=== PATIENT | female | born 1970 | race Caucasian/White ===

== ENCOUNTER 2022-07-22 11:13 | Emergency (ER) | payer OTHER, MEDICAID, SELFPAY ==
[2022-07-22 11:18] VITALS: BP 142/89; PULSE 77; RESP 18; TEMP 36.3; O2SAT 98; BMI 48.5
--- NOTE | 2022-07-22 11:32 | CRLHL7_ITS ---
For Patients: As a result of the Cures Act, medical imaging exams and procedure reports are released immediately into your electronic medical record. You may view this report before your referring provider. If you have questions, please contact your health care provider. Indication: Injury Technique: Single view of the pelvis was acquired Comparison: None Findings: Degenerative changes of the visualized lower lumbar spine. Pelvic calcifications likely phleboliths. No visible acute fracture, dislocation or destructive process. Impression: No visible acute posttraumatic finding. Degenerative changes Dictated by Krishna Childers MD @ 07/22/2022 1:13:31 PM (Electronically Signed)
--- NOTE | 2022-07-22 11:32 | CRLHL7_ITS ---
For Patients: As a result of the Cures Act, medical imaging exams and procedure reports are released immediately into your electronic medical record. You may view this report before your referring provider. If you have questions, please contact your health care provider. Indication: Injury Technique: Three views of the lumbosacral spine were acquired Comparison: None Findings: There is no traumatic malalignment. There is no visible acute fracture, dislocation or destructive process. Degenerative changes are noted mainly of the mid and lower lumbar spine. This involves the disc spaces and the facet joints. Impression: Degenerative changes. No visible acute fracture, dislocation or destructive process. Dictated by Krishna Childers MD @ 07/22/2022 1:14:54 PM (Electronically Signed)
--- NOTE | 2022-07-22 11:32 | CRLHL7_ITS ---
For Patients: As a result of the Century Cures Act, medical imaging exams and procedure reports are released immediately into your electronic medical record. You may view this report before your referring provider. If you have questions, please contact your health care provider. Indication: Injury Technique: A total of two views of the right ankle were acquired. Comparison: None Findings: Bones: Ossific fragment at the dorsal aspect the talus distally. This is probably chronic though correlate with point tenderness in this area to entirely exclude an acute avulsion. There is no other finding suggestive of a fracture. Joint spaces: Ankle mortise and syndesmosis are intact. Soft tissues: Dorsal calcaneal spur. Soft tissue swelling Impression: Ossific fragment arising from the dorsal aspect of the talus anteriorly/distally. This is probably chronic. However, correlate with point tenderness in this area to entirely exclude an acute avulsion fracture. No other findings suggesting fracture. Dictated by Krishna Childers MD @ 07/22/2022 1:17:31 PM (Electronically Signed)
--- NOTE | 2022-07-22 11:33 | ED_ITS ---
HPI - General Adult General Time Seen by Provider: 11:33 Date Seen: 07/22/22 Chief complaint: Extremity Pain/Injury, Lower Stated complaint: R ankle injury Time Seen by Provider: 07/22/22 11:15 Source: patient Mode of arrival: wheelchair Limitations: physical limitation History of Present Illness HPI narrative: Patient is a 52-year-old female who presents with a fall in the garage. She feels like her knee got and ankle got pushed back behind her, she has right ankle pain right hip pain and low back pain. The patient has otherwise been pretty healthy her past medical history is reviewed. She is unable take medication prior to coming. She has no head or neck pain no other trauma noted no abdominal pain. Related Data Home Medications Medication Instructions Recorded Confirmed cholestyramine (with sugar) 4 gram 4 ea PO 11/01/21 11/01/21 powder for susp in a packet Allergies Allergy/AdvReac Type Severity Reaction Status Date / Time No Known Allergies Allergy Verified 11/04/21 15:33 Review of Systems 2 Status of ROS: Reports: 6 or more systems reviewed and unremarkable except as noted in History and below PFSH [facility] Medical History Acute right flank pain ?R10.9 - Unspecified abdominal pain (ICD-10) Concussion ?S06.0X9A - Concussion with loss of consciousness of unspecified duration, initial encounter (ICD-10) Gestational diabetes ?O24.419 - Gestational diabetes mellitus in , unspecified control (ICD-10) Greater trochanteric bursitis of both hips ?M70.61 - Trochanteric bursitis, right hip (ICD-10) ?M70.62 - Trochanteric bursitis, left hip (ICD-10) History of endometrial biopsy ?Z92.89 - Personal history of other medical treatment (ICD-10) Long QT interval ?R94.31 - Abnormal electrocardiogram [ECG] [EKG] (ICD-10) Migraine equivalent ?G43.109 - Migraine with aura, not intractable, without status migrainosus (ICD-10) Multiple contusions ?T07.XXXA - Unspecified multiple injuries, initial encounter (ICD-10) Steatosis of liver ?K76.0 - Fatty (change of) liver, not elsewhere classified (ICD-10) Surgical History History of section ?Z98.891 - History of uterine scar from previous surgery (ICD-10) History of colposcopy with cervical biopsy (1992) ?Z98.890 - Other specified postprocedural states (ICD-10) History of dilation and curettage (2000) ?Z98.890 - Other specified postprocedural states (ICD-10) History of laparoscopic cholecystectomy (2014) ?Z90.49 - Acquired absence of other specified parts of digestive tract (ICD- 10) History of lateral meniscus repair of left knee (10/2019) ?Z98.890 - Other specified postprocedural states (ICD-10) History of tonsillectomy (2002) ?Z90.89 - Acquired absence of other organs (ICD-10) Family History Mother Coronary artery disease Family/Other Depression Daughter Fibromyalgia Father Prostate cancer Social History Narrative: 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 Exercises 5 t 6 times per week- water at [employer], has started weights also 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, home health aide, 2 kids Rarely consumes alcohol Smoking Status: Former smoker How often do you have a drink containing alcohol: monthly or less AUDIT-C Alcohol total score: 1 Non-prescribed substance use: denies use Exam Narrative: Exam Narrative: Objective: Patient's vital signs look largely unremarkable She is in no apparent distress, noncyanotic HEENT and neck and back are unremarkable she has no palpable tenderness in her low back Chest abdomen pelvis are unremarkable she has some mild pain in right lateral hip Her right ankle shows some mild swelling and tenderness over and anterior carol ofibular ligament laterally no open wounds noted distal CMS intact Neurologic is nonfocal Const: Vital Signs, click to edit/add: Vital Signs - 24 hr 07/22/22 11:18 Temperature 97.4 F L Pulse Rate [Right Pulse Oximeter] 77 Respiratory Rate 18 Blood Pressure [Ri ght Upper Arm] 142/89 H Pulse Oximetry 98 Oxygen Delivery Me thod Room Air Course Vital Signs Vital signs: Initial Vital Signs Temperature 97.4 F L 07/22/22 11:18 Temperature Source Temporal Artery Scan 07/22/22 11:18 Pulse Rate 77 07/22/22 11:18 Respiratory Rate 18 07/22/22 11:18 Blood Pressure 142/89 H 07/22/22 11:18 Blood Pressure Mean 106 07/22/22 11:18 Blood Pressure Position Sitting 07/22/22 11:18 Pulse Oximetry 98 07/22/22 11:18 Oxygen Delivery Method Room Air 07/22/22 11:18 Vital Signs Temperature 97.4 F L 07/22/22 11:18 Pulse Rate 77 07/22/22 11:18 Respiratory Rate 18 07/22/22 11:18 Blood Pressure 142/89 H 07/22/22 11:18 Pulse Oximetry 98 07/22/22 11:18 Oxygen Delivery Method Room Air 07/22/22 11:18 Temperature 97.4 F L 07/22/22 11:18 Pulse Rate 77 07/22/22 11:18 Respiratory Rate 18 07/22/22 11:18 Blood Pressure 142/89 H 07/22/22 11:18 Pulse Oximetry 98 07/22/22 11:18 Oxygen Delivery Method Room Air 07/22/22 11:18 Medical Decision Making MDM Narrative Medical decision making narrative: Patient is a 52-year-old female who fell and has right ankle hip and low back pain she fell on her. She fell in her garage she is nonambulatory based on her ankle. She has no head or neck or back pain at present although she does have some right hip pain. Will x-ray her right ankle right hip pelvis and low back. Denies . Addendum: Patient's pelvic x-ray, lumbar spine x-ray, and ankle x-ray show no obvious fracture. Will get her crutches, ibuprofen, ice, gel splint for her ankle. Follow up with primary care in 2-3 days. Light activity, return to ED sooner problems or concerns. I will call her with results of radiology over- read of her x-rays if needed. Addendum: I went back to talk to the patient and she now has developed some right knee pain it appears to have a stable knee, no effusion, but I think an x- ray be appropriate, will put her knee immobilizer as well. She will use crutches, have an ankle brace as well as a knee immobilizer. Will need follow- up with primary care as mention. Patient a knee x-ray that by my review looks unremarkable. I think follow-up with the orthopedic PA would be very appropriate in the clinic. She agrees to this. No written for off work until visited in the next 3-5 days. Discharge Plan Discharge Clinical Impression: Acute ankle pain, Lumbar back pain, Acute knee pain Patient Disposition: Home w/ Parent or Adult Condition: Stable Additional Instructions: Crutches, brace for the ankle, Advil as needed, and follow up with ortho in the next 2-3 days, further workup in ER as needed. Patient was comfortable plan. wear knee immobilizer. Follow up appointment is scheduled at the [facility] on 07/28 with a 10:30am appointment time. If you have any questions or need to reschedule, please call [phone]. [facility] [address] [place] [address] Activity Level: Light activity Discharge Diet: Regular Prescriptions: No Action cholestyramine (with sugar) 4 gram powder in packet 4 ea PO Follow Up/Referrals: Ruth Diaz MD [Primary Care Provider] - Stand Alone Forms: Qu[employer]th Info Instructions
[2022-07-22] MEDS: IBUPROFEN 400 MG TABLET 800 MG PO (12:32)
--- NOTE | 2022-07-22 12:48 | CRLHL7_ITS ---
For Patients: As a result of the Cures Act, medical imaging exams and procedure reports are released immediately into your electronic medical record. You may view this report before your referring provider. If you have questions, please contact your health care provider. Indication: Knee pain Technique: Right knee 3 views Comparison: 08/19/2021 Findings: Medial compartment spurring. Trace spurring at the lateral compartment. Patellofemoral spurring. Large joint effusion. No fracture. Vascular calcifications. Impression: Tricompartmental degenerative joint disease with interval development of a joint effusion. Dictated by Devang Recinos MD @ 07/23/2022 10:57:58 AM (Electronically Signed)
== END 2022-07-22 14:25 | disposition home or self-care (01) ==
PROVIDERS: Emergency Provider Family Medicine; PCP Family Medicine
DX: M25.571 Pain in right ankle and joints of right foot (principal); M54.50 Low back pain, unspecified; M25.561 Pain in right knee; W01.0XXA Fall on same level from slipping, tripping and stumbling without subsequent striking against object, initial encounter
CPT/HCPCS: 72100; 72170; 73562; 73600; 99284; A9270

== ENCOUNTER 2022-10-30 08:21 | Outpatient (CLI) | payer OTHER, MEDICAID, SELFPAY | END 2022-10-30 08:22 | disposition home or self-care (01) | PROVIDERS: PCP Family Medicine; Visit Provider Physician Assistant | DX: R53.83 Other fatigue (principal); R10.2 Pelvic and perineal pain; R32 Unspecified urinary incontinence; Z13.6 Encounter for screening for cardiovascular disorders; Z13.1 Encounter for screening for diabetes mellitus | CPT/HCPCS: 80061; 82306; 82947; 83001; 84443; 87086 ==

== ENCOUNTER 2022-11-06 14:44 | Outpatient (CLI) | payer OTHER, MEDICAID, SELFPAY ==
--- NOTE | 2022-11-06 15:00 | CRLHL7_ITS ---
For Patients: As a result of the Cures Act, medical imaging exams and procedure reports are released immediately into your electronic medical record. You may view this report before your referring provider. If you have questions, please contact your health care provider. INDICATION: Pelvic and perineal pain. History of section. TECHNIQUE: Transabdominal and transvaginal pelvic ultrasound. COMPARISON : November 15, 2020. FINDINGS: The uterus measures 9.9 x 3.1 x 5.2 cm. The endometrial stripe measures 3 mm transvaginally. section scar lower uterine segment. There appears to be a cystic lesion arising either within or just adjacent to the section scar measuring 1.9 x 1.6 x 1.8 cm. This was mentioned on the prior pelvic ultrasound November 15, 2020 (in fact 2 cysts were mentioned on that prior study but only 1 is convincingly seen today). Nonvisualization of the ovaries. No free pelvic fluid. IMPRESSION: 1. Normal size uterus. 2. Normal endometrial stripe thickness of 3 mm. 3. Cystic lesion arising from or adjacent to the section scar. Dictated by Ronnie Lutz MD @ 11/07/2022 10:05:41 AM (Electronically Signed)
== END 2022-11-06 14:45 | disposition home or self-care (01) ==
PROVIDERS: PCP Family Medicine; Visit Provider Physician Assistant
DX: R10.2 Pelvic and perineal pain (principal); R93.89 Abnormal findings on diagnostic imaging of other specified body structures
CPT/HCPCS: 76830; 76856

== ENCOUNTER 2023-01-22 13:41 | Outpatient (CLI) | payer MEDICAID, SELFPAY ==
--- NOTE | 2023-01-22 14:00 | CRLHL7_ITS ---
For Patients: As a result of the Century Cures Act, medical imaging exams and procedure reports are released immediately into your electronic medical record. You may view this report before your referring provider. If you have questions, please contact your health care provider. BILATERAL SCREENING MAMMOGRAM WITH COMPUTER-AIDED DETECTION AND TOMOSYNTHESIS TECHNIQUE: CC and MLO views were obtained. These mammographic images have been obtained using full-field digital technique. These mammographic images were interpreted with the benefit of computer-aided detection. Breast Tomosynthesis was used in this interpretation. COMPARISON FILM: 05/22/20, 06/22/18. FINDINGS: There are scattered areas of fibroglandular density IMPRESSION: There is no radiographic evidence for malignancy. ASSESSMENT: BI-RADS Category 2: Benign RECOMMENDATION: Routine screening mammogram in 1 year. A lay language report of this examination will be provided to the patient. Devang Recinos M.D. Diagnostic Radiologist [email or web address] [place]/Dictated by: Devang Recinos MD @ 01/23/2023 11:53:00 AM (Electronically Signed)
== END 2023-01-22 13:42 | disposition home or self-care (01) ==
LOC: MAMMO 13:42
PROVIDERS: Visit Provider Physician Assistant
DX: Z12.31 Encounter for screening mammogram for malignant neoplasm of breast (principal)
CPT/HCPCS: 77063; 77067

== ENCOUNTER 2023-09-03 08:54 | Outpatient (CLI) | payer MEDICAID, SELFPAY | END 2023-09-03 08:55 | disposition home or self-care (01) | PROVIDERS: PCP Physician Assistant; Visit Provider Physician Assistant | DX: E55.9 Vitamin D deficiency, unspecified (principal); R03.0 Elevated blood-pressure reading, without diagnosis of hypertension; Z13.220 Encounter for screening for lipoid disorders; Z13.29 Encounter for screening for other suspected endocrine disorder | CPT/HCPCS: 80053; 80061; 82306; 84443 ==

== ENCOUNTER 2023-09-17 08:09 | Outpatient (CLI) | payer MEDICAID, SELFPAY | END 2023-09-17 08:10 | disposition home or self-care (01) | LOC: NFLDREF 10-06 15:01 | PROVIDERS: Visit Provider Physician Assistant | DX: M79.604 Pain in right leg (principal); M79.605 Pain in left leg | CPT/HCPCS: 80053 ==

== ENCOUNTER 2024-01-13 17:42 | Emergency (ER) | payer OTHER, SELFPAY ==
[2024-01-13 17:46] VITALS: BP 150/73; PULSE 74; RESP 16; TEMP 36.3; O2SAT 99; BMI 49.4
[2024-01-13 18:02] LABS: Appearance Urine Clear (Clear); Bilirubin Urine Negative (Negative); Blood Urine Negative (Negative); Color Urine Yellow (Yellow); Glucose Urine Negative (Negative); Ketones Urine Negative (Negative); Leukocyte Esterase Urine Negative (Negative); Nitrite Urine Negative (Negative); Protein Urine Negative (Negative); Specific Gravity Urine 1.015 (1.000-1.030); Urobilinogen Urine 0.2 (0.2-1.0); pH Urine 5.5 (5.0-8.5)
[2024-01-13 18:17] LABS: RBC Urine 0-2 (0-2); Squamous Epithelial Cell Urine Moderate (None-Few)
--- NOTE | 2024-01-13 18:33 | ED_ITS ---
HPI - General Adult General Date Seen: 01/13/24 Chief complaint: Flank Pain Stated complaint: Lower right back pain Time Seen by Provider: 01/13/24 18:24 Source: patient Mode of arrival: ambulatory Limitations: no limitations History of Present Illness HPI narrative: Patient is a 53-year-old woman, generally healthy, who says she has right flank pain which started abruptly yesterday when she was getting ready to leave for work. She says she just turned and had sharp stabbing pain develop in the right flank. Since then, it seems to radiate to between the scapula and as well it radiates to her right lower quadrant. She has had a little bit of nausea today. She has had some chills but no documented fever, no urinary symptoms, no history of similar symptoms. She is status post cholecystectomy. Thinks she may have had a kidney stone once remotely. Pain is a little bit worse when she moves but she still has pain at rest. Related Data Home Medications ?Medication ?Instructions ?Recorded ?Confirmed cholestyramine (with sugar) 4 gram 4 ea PO 11/01/21 09/03/23 powder for susp in a packet ascorbic acid (vitamin C) 500 mg/5 50 mg PO QDAY 07/20/23 09/03/23 mL oral syrup cholecalciferol (vitamin D3) 10 10 mcg PO QDAY 07/20/23 09/03/23 mcg (400 unit) capsule omega-3 fatty acids 1,000 mg 1,000 mg PO QDAY 07/20/23 09/03/23 capsule vitamin K2 45 mcg capsule 45 mcg PO QDAY 07/20/23 09/03/23 Previous Rx's ?Medication ?Instructions ?Recorded fluconazole 150 mg tablet 150 mg PO Q3D 2 doses #2 tabs 07/20/23 Allergies Allergy/AdvReac Type Severity Reaction Status Date / Time No Known Allergies Allergy Verified 09/03/23 08:41 Review of Systems Status of ROS: Reports: 10 or more systems reviewed and unremarkable except as noted in History and below [facility] Medical History Greater trochanteric bursitis of both hips ?M70.61 - Trochanteric bursitis, right hip (ICD-10) ?M70.62 - Trochanteric bursitis, left hip (ICD-10) Long QT interval ?R94.31 - Abnormal electrocardiogram [ECG] [EKG] (ICD-10) Steatosis of liver ?K76.0 - Fatty (change of) liver, not elsewhere classified (ICD-10) Multiple contusions ?T07.XXXA - Unspecified multiple injuries, initial encounter (ICD-10) Migraine equivalent ?G43.109 - Migraine with aura, not intractable, without status migrainosus (ICD-10) History of endometrial biopsy ?Z92.89 - Personal history of other medical treatment (ICD-10) Gestational diabetes ?O24.419 - Gestational diabetes mellitus in , unspecified control (ICD-10) Concussion ?S06.0X9A - Concussion with loss of consciousness of unspecified duration, initial encounter (ICD-10) Acute right flank pain ?R10.9 - Unspecified abdominal pain (ICD-10) Surgical History History of tonsillectomy (2002) ?Z90.89 - Acquired absence of other organs (ICD-10) History of lateral meniscus repair of left knee (10/2019) ?Z98.890 - Other specified postprocedural states (ICD-10) History of laparoscopic cholecystectomy (2014) ?Z90.49 - Acquired absence of other specified parts of digestive tract (ICD- 10) History of dilation and curettage (2000) ?Z98.890 - Other specified postprocedural states (ICD-10) History of colposcopy with cervical biopsy (1992) ?Z98.890 - Other specified postprocedural states (ICD-10) History of section ?Z98.891 - History of uterine scar from previous surgery (ICD-10) Family History Mother Coronary artery disease Breast cancer Uterine cancer Family/Other Depression Daughter Fibromyalgia Father Prostate cancer 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 Exercises 5 t 6 times per week- water at [employer], has started weights also 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, home health aide, 2 kids Rarely consumes alcohol What is your current living situation?: I presently have a place to live Problems where you live: no known problems In the past 12 months, utilities in danger of being shut off: no In past 12 months, lack of transportation kept you from medical appts, meetings, work, or getting things needed for daily living: no In the past 12 mos, have been you worried that your food would run out before you had money to buy more?: never true In the past 12 mos, the food you bought just didn't last and you didn't have money to buy more?: never true Smoking Status: Former smoker Do you use any of these nicotine containing products: None How often do you have a drink containing alcohol: 2-4 times a month AUDIT-C Alcohol total score: 2 Non-prescribed substance use: denies use How often does anyone, including family, friends and others, physically hurt you : never How often does anyone, including family, friends and others, insult or talk down to you: never How often does anyone, including family, friends and others, threaten you with harm: never How often does anyone, including family, friends and others, scream or curse at you: never Little interest or pleasure in doing things: several days Feeling down, depressed, or hopeless: more than half the days Exam Narrative: Exam Narrative: Vital signs as noted above. In general, an alert, well-appearing patient. Head: Normocephalic, atraumatic. Eyes: Pupils are equal reactive. Extraocular movements are full. Conjunctivae are normal. ENT: Mucous membranes are moist. Throat is normal. Neck: Supple without lymphadenopathy. Heart: Regular rate and rhythm. No murmur or rub. Lungs: Clear bilaterally. No increased work of breathing, crackles or wheezes. Abdomen: Soft and nontender. No CVA tenderness. Back: She has a little bit of minimal tenderness in the right flank to palpation. Extremities: Well perfused. No edema. No calf tenderness. Pulses intact. Neurologic: Patient is alert and oriented to person and place. Speech is fluent. Face is symmetric. Moves all extremities equally. Affect: Normal. Skin: Warm and dry. Well perfused. Const: Vital Signs, click to edit/add: Vital Signs - 24 hr 01/13/24 17:46 01/13/24 19:18 Temperature 97.4 F L 97.9 F Pulse Rate [Pulse Oximeter] 74 78 Respiratory Rate 16 16 Blood Pressure [Ri ght Upper Arm] 150/73 H 148/91 H Pulse Oximetry 99 99 Oxygen Delivery Me thod Room Air Room Air Documenting provider has reviewed patient's vital signs: yes Course Course ED Course: She has been taking ibuprofen and Tylenol at home, declines pain medication here. She had a UA obtained, this really is negative, 0-2 red cells 2-5 white cells moderate squames. None the less, I think it is reasonable to rule out a larger kidney stone which might create a false negative in terms of hematuria. Other diagnostic considerations would include musculoskeletal pain, radiculopathy, shingles. By my review, CT scan of the abdomen did not show any evidence of kidney stone hydronephrosis, pyelonephritis or other findings to explain her flank pain. Final radiology read as follows:Patient: UMA GRAJEDA Facility: [facility] RIS Site . Site : 1970 Study: CT-Abdomen/Pelvis W/O-01/13/2024 6:46:28 PM Ordering Physician: Cuba Mak Final Report: INDICATION: Right flank pain. TECHNIQUE: Multiplanar CT examination of the abdomen and pelvis was performed without the use of intravenous contrast. COMPARISON: CT abdomen pelvis 02/01/2020. FINDINGS: Lower chest: No focal consolidation. Normal heart size. No pleural effusions or pneumothorax. Small hiatal hernia. Liver: Unremarkable. Gallbladder: Cholecystectomy. Biliary: Unremarkable. Pancreas: Within normal limits. Spleen: Unremarkable. Adrenal glands: Unremarkable. Renal/ureters/bladder: Normal in size. No obstructive uropathy. No hydronephrosis or obstructive urinary calculi. The ureters appear unremarkable. The bladder is within normal limits. Limited evaluation for renal masses without the use of intravenous contrast. Pelvis: Unremarkable uterus. No adnexal masses. Gastrointestinal: No bowel wall thickening or bowel obstruction. Normal appendix. No significant colonic diverticulosis. Mild colonic stool burden. Vasculature: No aortic aneurysm. No significant atherosclerotic calcifications. Lymph nodes: No pathologic lymphadenopathy by size criteria. Peritoneum: No free fluid or pneumoperitoneum. No drainable fluid collections. Abdominal wall/soft tissues: Unremarkable. Bones: No acute osseous abnormalities. IMPRESSION: 1. No hydronephrosis or obstructive urolithiasis. 2. No acute abdominopelvic pathology. The etiology of the patient`s flank pain is not elucidated on this examination. Please note that all CT scans at this facility use dose modulation, iterative reconstruction, and/or weight-based dosing when appropriate to reduce radiation dose to as low as reasonably achievable. Dictated by Rad Holloway MD @ 01/13/2024 8:16:47 PM At this time, would recommend supportive measures, continue with ibuprofen and/or Tylenol, we talked about trying other modalities such as prednisone for possible radiculopathy or a muscle relaxer, she says she really just does not like taking medicines and would rather stick with Motrin and Tylenol. I think that is certainly reasonable. We talked about persistence of symptoms beyond 7- 10 days that she should see her primary doctor for recheck. If at any time she has worsening severe pain, if she has new symptoms such as fevers, vomiting, significant abdominal pain return to the ER at any time. Vital Signs Vital signs: Initial Vital Signs Temperature 97.4 F L 01/13/24 17:46 Temperature Source Temporal Artery Scan 01/13/24 17:46 Pulse Rate 74 01/13/24 17:46 Respiratory Rate 16 01/13/24 17:46 Blood Pressure 150/73 H 01/13/24 17:46 Blood Pressure Mean 98 01/13/24 17:46 Blood Pressure Position Sitting 01/13/24 17:46 Pulse Oximetry 99 01/13/24 17:46 Oxygen Delivery Method Room Air 01/13/24 17:46 Vital Signs Temperature 97.4 F L 01/13/24 17:46 Pulse Rate 74 01/13/24 17:46 Respiratory Rate 16 01/13/24 17:46 Blood Pressure 150/73 H 01/13/24 17:46 Pulse Oximetry 99 01/13/24 17:46 Oxygen Delivery Method Room Air 01/13/24 17:46 Temperature 97.9 F 01/13/24 19:18 Pulse Rate 78 01/13/24 19:18 Respiratory Rate 16 01/13/24 19:18 Blood Pressure 148/91 H 01/13/24 19:18 Pulse Oximetry 99 01/13/24 19:18 Oxygen Delivery Method Room Air 01/13/24 19:18 Medical Decision Making Lab Data Labs: Lab Results 09/25/24 Range/Units 17:51 Urine Color Yellow (Yellow) Urine Appearance Clear (Clear) Urine pH 5.5 (5.0-8.5) Ur Specific [place] 1.015 (1.000-1.030) Urine Protein Negative (Negative) Urine Glucose (UA) Negative (Negative) Urine Ketones Negative (Negative) Urine Blood Negative (Negative) Urine Nitrite Negative (Negative) Urine Bilirubin Negative (Negative) Urine Urobilinogen 0.2 (0.2-1.0) Ur Leukocyte Esterase Negative (Negative) Urine RBC 0-2 (0-2) Urine WBC 2-5 (0-5) Ur Squamous Epith Cells Moderate A (None-Few) Urine Bacteria None (None) Discharge Plan Discharge Clinical Impression: Acute right-sided back pain Patient Disposition: Home, Self-Care Condition: Stable Instructions: Acute Low Back Pain (ED) Additional Instructions: Continue with ibuprofen and/or Tylenol as needed. Ice or heat may be helpful as well. For more severe pain, new symptoms such as fevers, nausea vomiting or significant abdominal pain, return any time to the ER for re-evaluation. Otherwise, if not gradually improving over the next 7-10 days, see her primary doctor. If you develop a rash you should be seen again. Prescriptions: No Action cholestyramine (with sugar) 4 gram powder in packet 4 ea PO vitamin K2 45 mcg capsule 45 mcg PO QDAY omega-3 fatty acids 1,000 mg capsule 1,000 mg PO QDAY ascorbic acid (vitamin C) 500 mg/5 mL syrup 50 mg PO QDAY cholecalciferol (vitamin D3) 10 mcg (400 unit) capsule 10 mcg PO QDAY fluconazole 150 mg tablet 150 mg PO Q3D Qty: 2 0RF Rx Instructions: may repeat second dose 72 hrs after first dose if symptoms persist Follow Up/Referrals: Provider,Not a Local [Primary Care Provider] - Stand Alone Forms: [employer] Info Instructions
[2024-01-13 19:18] VITALS: BP 148/91; PULSE 78; RESP 16; TEMP 36.6; O2SAT 99
== END 2024-01-13 20:35 | disposition home or self-care (01) ==
PROVIDERS: Emergency Provider Emergency Medicine
DX: M54.9 Dorsalgia, unspecified (principal)
CPT/HCPCS: 74176; 81001; 99284

== ENCOUNTER 2024-03-30 16:38 | Emergency (ER) | payer MEDICAID, SELFPAY ==
[2024-03-30 16:43] VITALS: BP 134/84; PULSE 78; RESP 18; TEMP 36.7; O2SAT 98; BMI 36.6
--- NOTE | 2024-03-30 17:16 | ED_ITS ---
HPI - General Adult General Chief complaint: Chest Pain Stated complaint: Blurred vison L eye, chest pain, imbalance, nausea Time Seen by Provider: 03/30/24 16:41 History of Present Illness HPI narrative: This 53-year-old female comes in reporting vertigo symptoms that came on rather suddenly prior to arrival. She had nausea and some vomiting related to this. She states that she can minimize the symptoms to where they are almost gone if she remains still. Symptoms are worse with any kind of movement. Prior to this she was feeling well and had no complaints. She does report some tingling sensation in her face and some heart palpitations that was related to the nausea and vomiting but now has resolved. Related Data Home Medications ?Medication ?Instructions ?Recorded ?Confirmed cholestyramine (with sugar) 4 gram 4 ea PO 11/01/21 09/03/23 powder for susp in a packet omega-3 fatty acids 1,000 mg 1,000 mg PO QDAY 07/20/23 09/03/23 capsule vitamin K2 45 mcg capsule 45 mcg PO QDAY 07/20/23 09/03/23 famotidine 20 mg tablet 20 mg PO BID 03/30/24 03/30/24 Previous Rx's ?Medication ?Instructions ?Recorded fluconazole 150 mg tablet 150 mg PO Q3D 2 doses #2 tabs 07/20/23 Allergies Allergy/AdvReac Type Severity Reaction Status Date / Time No Known Allergies Allergy Verified 03/30/24 16:51 Review of Systems Status of ROS: Reports: 10 or more systems reviewed and unremarkable except as noted in History and below Narrative: Constitutional: No fevers, no weight gain or loss. Eyes: No discharge. No vision changes. HENT: No congestion, no sore throat, no ear pain. Cardiovascular: No chest pain, no palpitations. Respiratory: No shortness of breath, no wheezes, no cough. Gastrointestinal: No abdominal pain, no diarrhea. Nausea and 1 vomiting episode related to vertigo symptoms. Genitourinary: No dysuria, no hematuria. Musculoskeletal: Normal range of motion. Skin: No rashes, no pruritis. Neurological: No weakness, sensory change, speech change. Vertigo symptoms as described above. Endo/Heme/Allergies: No bruising or bleeding. No polydipsia. Pysch: no suicidality, no anxiety, no insomnia. All other systems reviewed and are negative. PFSH PFS Medical History Greater trochanteric bursitis of both hips ?M70.61 - Trochanteric bursitis, right hip (ICD-10) ?M70.62 - Trochanteric bursitis, left hip (ICD-10) Long QT interval ?R94.31 - Abnormal electrocardiogram [ECG] [EKG] (ICD-10) Steatosis of liver ?K76.0 - Fatty (change of) liver, not elsewhere classified (ICD-10) Multiple contusions ?T07.XXXA - Unspecified multiple injuries, initial encounter (ICD-10) Migraine equivalent ?G43.109 - Migraine with aura, not intractable, without status migrainosus (ICD-10) History of endometrial biopsy ?Z92.89 - Personal history of other medical treatment (ICD-10) Gestational diabetes ?O24.419 - Gestational diabetes mellitus in , unspecified control (ICD-10) Concussion ?S06.0X9A - Concussion with loss of consciousness of unspecified duration, initial encounter (ICD-10) Acute right flank pain ?R10.9 - Unspecified abdominal pain (ICD-10) Surgical History History of tonsillectomy (2002) ?Z90.89 - Acquired absence of other organs (ICD-10) History of lateral meniscus repair of left knee (10/2019) ?Z98.890 - Other specified postprocedural states (ICD-10) History of laparoscopic cholecystectomy (2014) ?Z90.49 - Acquired absence of other specified parts of digestive tract (ICD- 10) History of dilation and curettage (2000) ?Z98.890 - Other specified postprocedural states (ICD-10) History of colposcopy with cervical biopsy (1992) ?Z98.890 - Other specified postprocedural states (ICD-10) History of section ?Z98.891 - History of uterine scar from previous surgery (ICD-10) Family History Mother Coronary artery disease Breast cancer Uterine cancer Family/Other Depression Daughter Fibromyalgia Father Prostate cancer 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 Exercises 5 t 6 times per week- water at [employer], has started weights also 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, home health aide, 2 kids Rarely consumes alcohol What is your current living situation?: I presently have a place to live Problems where you live: no known problems In the past 12 months, utilities in danger of being shut off: no In the past 12 mos, have been you worried that your food would run out before you had money to buy more?: never true In the past 12 mos, the food you bought just didn't last and you didn't have money to buy more?: never true Smoking Status: Former smoker Do you use any of these nicotine containing products: None How often do you have a drink containing alcohol: 2-4 times a month AUDIT-C Alcohol total score: 2 Non-prescribed substance use: denies use How often does anyone, including family, friends and others, physically hurt you : never How often does anyone, including family, friends and others, insult or talk down to you: never How often does anyone, including family, friends and others, threaten you with harm: never How often does anyone, including family, friends and others, scream or curse at you: never service: No Exam Narrative: Exam Narrative: Constitutional: Well-developed, well-nourished, no acute distress. HEENT: Normocephalic, atraumatic. Neck: Normal range of motion. Nontender. Supple. Heart: Regular. No murmurs. Normal rate. Intact distal pulses. Lungs: Clear to auscultation. No chest discomfort. No wheezes, rhonchi, or rales. Abdomen: Normal bowel sounds. Nontender. No rebound tenderness. Genitalia: Deferred. Back: No midline tenderness. Normal range of motion. Extremities: Normal range of motion. No injury. Skin: Intact. No rash. Warm. No erythema or pallor. Neurologic: No altered sensation. No weakness. Alert and oriented. No facial asymmetry. Tongue is midline. [id number] is normal. No pronator drift. Investment Officer strength is equal bilaterally. Able to raise each leg from the bed. Psychiatric: No suicidality. No anxiety or depression. No insomnia. Nursing notes and vitals signs are reviewed. Const: Vital Signs, click to edit/add: Vital Signs - 24 hr 03/30/24 16:43 03/30/24 18:01 Temperature 98.0 F Pulse Rate [Right Pulse Oximeter] 78 88 Respiratory Rate 18 Blood Pressure [Ri ght Upper Arm] 134/84 121/69 Pulse Oximetry 98 Oxygen Delivery Me thod Room Air Course Vital Signs Vital signs: Initial Vital Signs Temperature 98.0 F 03/30/24 16:43 Temperature Source Temporal Artery Scan 03/30/24 16:43 Pulse Rate 78 03/30/24 16:43 Pulse Rhythm Regular 03/30/24 16:43 Pulse Strength 3+ Normal 03/30/24 16:43 Respiratory Rate 18 03/30/24 16:43 Blood Pressure 134/84 03/30/24 16:43 Blood Pressure Mean 100 03/30/24 16:43 Blood Pressure Position Sitting 03/30/24 16:43 Pulse Oximetry 98 03/30/24 16:43 Oxygen Delivery Method Room Air 03/30/24 16:43 Vital Signs Temperature 98.0 F 03/30/24 16:43 Pulse Rate 78 03/30/24 16:43 Respiratory Rate 18 03/30/24 16:43 Blood Pressure 134/84 03/30/24 16:43 Pulse Oximetry 98 03/30/24 16:43 Oxygen Delivery Method Room Air 03/30/24 16:43 Temperature 98.0 F 03/30/24 16:43 Pulse Rate 88 03/30/24 18:01 Respiratory Rate 18 03/30/24 16:43 Blood Pressure 121/69 03/30/24 18:01 Pulse Oximetry 98 03/30/24 16:43 Oxygen Delivery Method Room Air 03/30/24 16:43 Medications Administered Medications: Discontinued Medications Generic Name Dose Route Start Last Admin Trade Name Freq PRN Reason Stop Dose Admin Meclizine HCl 25 mg 03/30/24 17:15 03/30/24 17:21 Meclizine Hcl 25 Mg Tablet PO 03/30/24 17:16 25 mg ONCE ONE Administration Ondansetron HCl 4 mg 03/30/24 17:15 03/30/24 17:21 Ondansetron Odt 4 Mg Tab PO 03/30/24 17:16 4 mg ONCE ONE Administration Medical Decision Making [facility] Narrative Medical decision making narrative: This 53-year-old comes in reporting vertigo symptoms that came on rather suddenly. She did have some associated nausea and a vomiting episode. Her exam here is completely normal. She does not have nystagmus. Her neurologic exam is also completely normal. Her symptoms are much more likely to be a peripheral cause for her vertigo. She is not showing any signs or symptoms of a central process such as a stroke. I did discuss lab and imaging options and the patient did prefer to have labs checked. Her EKG and labs returned with normal results. Her troponin returns at 0. The patient did receive oral doses of Zofran and meclizine and she states that she is feeling better. She is okay to be discharged home. I did provide prescriptions for these 2 medicines. Lab Data Labs: Lab Results 03/30/24 Range/Units 17:25 WBC 6.96 (4.50-11.00) K/uL RBC 4.86 (4.00-5.20) m/uL Hgb 13.2 (12.0-16.0) gm/dL Hct 41.3 (33.0-51.0) % MCV 85 (80-100) fL MCH 27 (26-34) pg MCHC 32 (32-36) gm/dL RDW Coeff of Jeannette 12.8 (11.5-15.5) % Plt Count 199 (140-440) K/uL Neut % (Auto) 53.2 (42.0-72.0) % Lymph % (Auto) 35.6 (20-44) % [place] % (Auto) 7.6 (0.0-11.0) % Eos % (Auto) 3.2 (0.0-7.0) % Baso % (Auto) 0.3 (0.0-3.0) % Neut # (Auto) 3.70 (1.7-7.0) K/uL Lymph # (Auto) 2.48 (0.90-2.90) K/uL [place] # (Auto) 0.50 (0.00-0.90) K/UL Eos # (Auto) 0.22 (0.00-0.50) K/uL Baso # (Auto) 0.02 (0.00-0.30) K/uL Abs Immat Gran (auto) 0.01 (0.00-0.30) K/uL Imm/Tot Granulo (auto) 0.1 % Sodium 137 (135-149) mmol/L Potassium 4.0 (3.6-5.1) mmol/L Chloride 101 (96-114) mmol/L Carbon Dioxide 26 (20-32) mmol/L Anion Gap 10 (7-15) mEq/L BUN 18 (7-30) mg/dL Creatinine 0.6 (0.5-1.5) mg/dL Estimated Creat Clear 84.78 Estimated GFR 107 ml/min Glucose 117 H (60-115) mg/dL Calcium 8.7 (8.4-10.6) mg/dL POC Troponin I 0.00 L (0.01-0.04) ng/ml ECG Data Attestation: I personally reviewed and interpreted this ECG as follows: Interpretation: Normal sinus rhythm. Rate is 81 beats per minute. There are no ST or T-wave abnormalities. Discharge Plan Discharge Clinical Impression: Acute vestibular neuritis Patient Disposition: Home w/ Parent or Adult Condition: Improved Additional Instructions: Take medication as needed and indicated. Increase activity as tolerated. Follow up with MD return if worsening. Prescriptions: No Action cholestyramine (with sugar) 4 gram powder in packet 4 ea PO vitamin K2 45 mcg capsule 45 mcg PO QDAY omega-3 fatty acids 1,000 mg capsule 1,000 mg PO QDAY fluconazole 150 mg tablet 150 mg PO Q3D Qty: 2 0RF Rx Instructions: may repeat second dose 72 hrs after first dose if symptoms persist famotidine 20 mg tablet 20 mg PO BID Follow Up/Referrals: Provider,Not a Local [Non-Staff] - Stand Alone Forms: [employer] Info Instructions
[2024-03-30] MEDS: ONDANSETRON ODT 4 MG TAB PO (17:21)
[2024-03-30] MEDS: MECLIZINE HCL 25 MG TABLET PO (17:21)
[2024-03-30 17:37] LABS: Basophils Absolute Auto 0.02 K/uL (0.00-0.30); Basophils Percent Auto 0.3 % (0.0-3.0); Eosinophils Absolute Auto 0.22 K/uL (0.00-0.50); Eosinophils Percent Auto 3.2 % (0.0-7.0); Hematocrit 41.3 % (33.0-51.0); Hemoglobin* 13.2 gm/dL (12.0-16.0); Immature Granulocytes Abs Auto 0.01 K/uL (0.00-0.30); Immature Granulocytes Pct Auto 0.1 %; Lymphocytes Absolute Auto 2.48 K/uL (0.90-2.90); Lymphocytes Percent Auto 35.6 % (20-44); Mean Corpuscular HGB Conc 32 gm/dL (32-36); Mean Corpuscular Hemoglobin 27 pg (26-34); Mean Corpuscular Volume 85 fL (80-100); Monocytes Percent Auto 7.6 % (0.0-11.0); Neutrophils Percent Auto 53.2 % (42.0-72.0); Platelet Count* 199 K/uL (140-440); RDW Coefficient of Variation % 12.8 % (11.5-15.5); Red Blood Count 4.86 m/uL (4.00-5.20); White Blood Count* 6.96 K/uL (4.50-11.00)
[2024-03-30 17:44] LABS: Slide Review Reflex No
[2024-03-30 17:47] LABS: Chloride* 101 mmol/L (96-114); Sodium* 137 mmol/L (135-149)
[2024-03-30 17:50] LABS: Blood Urea Nitrogen* 18 mg/dL (7-30); Creatinine* 0.6 mg/dL (0.5-1.5); Est. Creatinine Clearance* 84.78; Estimated Glomerular Filt Rate 107 ml/min
[2024-03-30 17:51] LABS: Anion Gap 10 mEq/L (7-15); Calcium* 8.7 mg/dL (8.4-10.6); Carbon Dioxide* 26 mmol/L (20-32); Glucose* 117 mg/dL (60-115)
[2024-03-30 18:01] VITALS: BP 121/69; PULSE 88
== END 2024-03-30 18:16 | disposition home or self-care (01) ==
PROVIDERS: Emergency Provider Emergency Medicine Emergency Medical Services; PCP Family Medicine
DX: H81.22 Vestibular neuronitis, left ear (principal)
CPT/HCPCS: 36415; 80048; 84484; 85025; 93005; 99284; A9270

== ENCOUNTER 2024-05-12 12:17 | Outpatient (CLI) | payer MEDICAID, OTHER, SELFPAY | END 2024-05-12 12:18 | disposition home or self-care (01) | LOC: FRMREF 12:19 | PROVIDERS: PCP Family Medicine; Visit Provider Family Medicine | DX: E55.9 Vitamin D deficiency, unspecified (principal) | CPT/HCPCS: 82306 ==

== ENCOUNTER 2024-05-20 11:44 | Emergency (ER) | payer MEDICAID, OTHER, SELFPAY ==
--- OUTSIDE RECORDS SUMMARY | 2024-05-20 11:47 | XMS_ITS | Clinical Summary ---
Author Organization [facility] Address [place], [place] [address] Care Team Providers Care Senior Outside Sales Representative Name Role Phone RudyesFrances MD Unavailable [phone] Ruth Diaz MD Primary Care Provider [phone] Allergies No known active allergies Medications fluticasone (50 mcg per actuation) nasal solution (FLONASE)Indicatio ns:Nasal congestion Inhale 2 Sprays into affected nostril(s) once daily. 48 g 3 023 Active pregabalin (LYRICA) 50 mg capsuleIndications :Bilateral leg and foot pain Take 1 Capsule (50 mg) by mouth two times daily. 200 Capsule 3 023 Active famotidine (PEPCID) 20 mg tabletIndications: Gastric reflux TAKE ONE TABLET BY MOUTH TWICE DAILY IF NEEDED FOR HEARTBURN 180 Tablet 3 024 Active LORazepam (ATIVAN) 1 mg tabletIndications: Spinal stenosis of lumbar region at multiple levels Take 2 Tablets (2 mg) by mouth one time for 1 dose. Take one tablet prior to mri - august repeat times one 2 Tablet 024 Active cholestyramine-suc abi 4 G (QUESTRAN) 4 gram packetIndications: History of laparoscopic cholecystectomy MIX AND DRINK CONTENTS OF 1 PACKET ACCORDING TO PACKAGE DIRECTIONS TWICE DAILY 60 Packet 025 Active benzonatate (TESSALON) 100 mg capsuleIndications :Influenza-like illness,Bronchitis with bronchospasm Take 1 Capsule (100 mg) by mouth 3 times daily if needed for Cough. 30 Capsule 025 Active albuterol HFA (ProAir HFA) 90 mcg/actuation inhalerIndications :Influenza-like illness,Bronchitis with bronchospasm Inhale 1-2 Puffs by mouth every 6 hours if needed for Shortness of Breath 1st choice. 1 Each 025 Active predniSONE (DELTASONE) 20 mg tabletIndications: RSV infection,SOB (shortness of breath) Take 2 Tablets (40 mg) by mouth once daily with a meal for 5 days. 10 Tablet 025 2024 Active cholestyramine-suc abi 4 G (QUESTRAN) 4 gram packetIndications: History of laparoscopic cholecystectomy MIX AND DRINK CONTENTS OF 1 PACKET ACCORDING TO PACKAGE DIRECTIONS TWO TIMES A DAY 180 Packet 2 023 2024 Discontinued Active Problems Problem Noted Date Diagnosed Date Osteoarthritis of left knee 08/13/202207/20 Osteoarthritis of right knee 08/13/2022 Right knee meniscal tear 08/13/2022 023 Status post arthroscopy of left knee 08/13/2022 08/13/2022 SOB (shortness of breath) 11/20/2021 Chronic GERD 11/20/2021 Prolonged Q-T interval on ECG 09/26/2021 Anxiety disorder 03/18/2021 Carpal tunnel syndrome of left wrist 03/18/2021 Chronic diarrhea 03/18/2021 Moderate depressive disorder 03/18/2021 History of colposcopy with cervical biopsy 03/18 History of laparoscopic cholecystectomy 03/18/20 21 Morbid obesity with body mass index (BMI) of 40. 0 or higher 03/18/2021 Peptic ulcer 03/18/2021 Urethral stricture 03/18/2021 Classical migraine with intractable migraine 07/2020 Routine adult health maintenance 03/01/2019 Overview (03/01/2019): Colonoscopy 02/2019 normal biopsies, repeat in 10 years Left facial numbness 03/19/2017 Visual changes 03/19/2017 Chronic intractable headache 03/19/2017 Urge incontinence of urine 03/19/2017 Menorrhagia with irregular cycle 03/19/2017 Hot flashes 03/19/2017 Gastric reflux 02/25/2017 Overview (11/25/2017): EGD 11/2017 hiatal hernia, Reactive gastropathy Morbid exogenous obesity 02/15/2016 Fatty liver 02/14/2016 Splenomegaly 02/14/2016 Overview (02/14/2016): 14 cm spleen seen on CT scan 02/02. Normal splenic size on CT scan of 2010. Uterus, adenomyosis 08/15/2014 Pre-diabetes 08/09/2013 Vitamin D deficiency 08/04/2013 Vaginal bleeding between periods 07/15/2010 Resolved Problems Problem Noted Date Diagnosed Date Resolved Date Alcohol abuse 06/07/2009 06/12/2015 Encounters Date Type Department Care Team Description 05/17/2024 10:30 AM [employer] Ancillary Procedure [facility] [address] [place] [address] Arrived 05/17/2024 9:55 AM [employer] Office Visit [facility] [address] [place] [address] Shirley Alejandre PA Cough (started 4 days ago); Ear Problem (left ear ); Throat Problem (sore throat ) 05/17/2024 Telephone [facility] [address] [place] [address] Shirley Alejandre PA Med Change Request (dur reject on albuterol) 05/17/2024 Travel 04/25/2024 Refill [facility] [address] [place] [address] Ruth Diaz MD Medication Management from Last 3 Months Immunizations Name Administration Dates Next Due AMB Influenza, IIV3 (Age >=3 years)(Flu Clinic Only) 03/06/2011,03/19/2010 COVID-19 vaccine (Moderna 100mcg/0.5mL) IMELDA VO 07/19/2020,06/21/2020 Influenza Virus, Unspecified 04/20/2018, 02/18/2013,04/01/2006,2005,02/14/2003,02/14/2002 Influenza, IIV3 (Age 6-35 mos) 03/06/2011 Influenza, IIV3 (Age >=3 years) 02/19/20 13,02/17/2012,03/19/2010,2005,04/23/2005,02/14/2003,02/14/2002 Influenza, IIV4 02/21/2020, 9,04/27/2017,2015 Influenza, IIV4 (=>6mos) MDV 02/15/2015 Td (Age >=7 Years) 05/27/2004 Td, Preservative Free (age > = 7 Years) 05/27/2004 Tdap 07/12/2012 Family History Medical History Relation Name Comments Other Brother Gout Thyroid Disease Daughter 1 luis's Psychiatric illness Daughter 2 ADHD Alcohol/Drug Father alcohol Arthritis Father Osteoarthritis Other Father polyps Vision loss Father Other Maternal Grandfather Endometrial cancer Maternal Grandmother Alcohol/Drug Mother alcohol Aneurysm Mother abdominal (3) COPD Mother Cancer Mother uterine Cancer-breast Mother Heart Disease Mother [place] at 52, rece ntly had vascular surgery at age 65 Other Mother endometrial can cer Stroke Mother age 48 Alcohol/Drug Paternal Aunt 1 recovering a lcoholic Arthritis Paternal Aunt 2 Osteoarthrit is Cancer Paternal Grandmother uterine Diabetes Paternal Grandmother Relation Name Status Comments Brother Daughter 1 Daughter 2 Father Alive Maternal Grandfather Maternal Grandmother Mother Alive Paternal Aunt 1 Paternal Aunt 2 Paternal Grandfather Paternal Grandmother Social History Tobacco Use Types Packs/Day Years Used Date Smoking Tobacco: Former Cigarettes 1 15 0 11/18/1996 - 11/19/2011 Smokeless Tobacco: Never Tobacco Cessation:Counseling Given: Yes Comments:quit 11/2011 Alcohol Use Standard Drinks/Week Comments Yes 0 (1 standard drink = 0.6 oz pur e alcohol) Beer once a month. PHQ-2 Answer Date Recorded PHQ-2 TOTAL SCORE 6 08/13/2022 Social Connections Answer Date Recorded Do you often feel lonely or isolated from those around you? 0 12/21/2023 Financial Resource Strain Answer Date R ecorded Difficulty of Paying Living Expenses 2 12/21/2023 Difficulty of Paying Living Expenses 1 12/21/2023 Food Insecurity Answer Date Recorded Do you worry your food will run out before you are able to buy more? 1 12/21/2023 Transportation Needs Answer Date Record ed Does lack of transportation keep you from medica l appointments? 1 12/21/2023 Does lack of transportation keep you from work, meetings or getting things that you need? 1 12/21/2023 Housing Stability Answer Date Recorded What is your housing situation today? 1 12/21/2023 Utilities Answer Date Recorded Do you have trouble paying f or utilities (for example, heat, electricity, water, phone)? 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 file Not on file Not on file Not on file Not on file Not on file Not on file Obstetrics History Para Term AB IAB SAB Ectopic Multiple Livin g Live Births 4 2 2 2 2 Date Outcome GA Total Labor Labor/2nd/3rd Weight Sex Type Anes PTL Andra A1 A5 Name Clin SAB SAB Para C-Secti on Para C-Secti on Last Filed Vital Signs Vital Sign Reading Time Taken Comments Blood Pressure 116/80 05/17/2024 9:59 AM [employer] Pulse 90 05/17/2024 9:59 AM [employer] Temperature 36.8 C (98.2 F) 05/17/2024 9:59 AM [employer] Respiratory Rate 16 08/06/2020 7:03 PM CDT Oxygen Saturation 97% 05/17/2024 9:59 AM [employer] Inhaled Oxygen Concentration - - Weight 117.5 kg (259 lb) 05/17/2024 9:59 AM [employer] Height 160 cm (5' 3) 08/13/2022 3:32 PM CDT Body Mass Index 45.88 08/13/2022 3:32 PM CDT Plan of Treatment Health Maintenance Due Date Last Done Comments Mammogram for age 45-75 06/23/2019 06/23/19 19, 06/16/2017, 12/12/2014, Additional history exists Pneumococcal series for age 50+ (1 of 1 - PCV) 07/11/2019 Zoster (shingles) series for age 50+ (1 of 2) 07/11/2019 Tetanus booster 07/12/2022 07/12/2012, 10/2004, 05/27/2004 BMI (ht and wt on same day) for age 18+ 08/14/2023 08/13/2022, 02/04/2022, 11/20/2021, Additional history exists Depression screening for age 12+ 08/14/2023 08/13/2022, 05/27/2021, 07/18/2020, Additional history exists COVID-19 vaccine series ( season) 2023 07/19/2020, 06/21/2020 Influenza for age 50-64 12/20/2023 02/21/20 20, 05/11/2018, 04/20/2018, Additional history exists Lipids for age 45-75 01/07/2027 01/07/2022, 12/09/2017, 12/05/2015, Additional history exists Pap test for age 21-65 09/02/2028 , 09/03/2023, 06/29/2018, Additional history exists Colonoscopy through age 75 02/28/202902/28, 02/28/2019, 02/28/2019, Additional history exists Tdap Completed 07/12/2012 HIV for age 15-65 Completed 02/09/2014, 09/24/2006 Hepatitis C screening for ag e 18-79 Completed 03/20/2016, 02/09/2014 Procedures Procedure Name Priority Date/Time Associated Diagnosis Comments XR CHEST 2 VIEWS PA AND LATERAL TITI 05/17/2024 10:32 AM [employer] Influenza-like illness Bronchitis with bronchospasm COVID/FLU/RSV PANEL Routine 05/17/2024 1 0:24 AM [employer] Influenza-like illness HPV HIGH RISK Routine 09/03/2023 8:56 AM CDT LIPID PANEL Routine 01/07/2022 9:16 AM CDT Lipid screening COLONOSCOPY DIAGNOSTIC Routine 02/28/2019 12:00 PM [employer] Abdominal pain, LUQ (left upper quadrant) Chronic diarrhea SCAN-MAMMOGRAPHY REPORT 06/22/2018 12:00 AM [employer] ANTI HCV Routine 03/20/2016 4:19 PM [employer] Fatty liver ANTI HIV 1/2 Routine 02/09/2014 11:38 AM CDT Vasculitis from Last 3 Months or Most Recently Relevant to Health Maintenance Results * XR CHEST 2 VIEWS PA AND LATERAL (05/17/2024 10:32 AM [employer]) Anatomical Region Laterality Modality CHEST, THORAX, Lung, HEART Compu rogelio Radiography 05/17/2024 12:2 5 PM [employer] Impressions 05/17/2024 12:25 PM [employer] No acute findings. Dictated by Devang Recinos MD @ 05/17/2024 12:25:16 PM (Electronically Signed) Narrative 05/17/2024 12:25 PM [employer] For Patients: As a result of the Cures Act, medical imaging exams and procedure reports are released immediately into your electronic medical record. You may view this report before your referring provider. If you have questions, please contact your health care provider. INDICATION: Influenza like illness TECHNIQUE: Chest 2 views COMPARISON: 08/15/2020, 02/28/2022 FINDINGS: Cardiovascular and mediastinum: Heart size and vasculature are normal in caliber and appearance. Lungs and pleural spaces: Lungs are clear. No sign of infiltrate or mass. No sign of pleural effusion. No pneumothorax. Bones and soft tissues: No significant findings. Procedure Note Devang Recinos MD - 05/17/2024 For Patients: As a result of the Cures Act, medical imagingexams and procedure reports are released immediately into your electronicmedical record. You may view this report before your referring provider.If you have questions, please contact your health care provider. INDICATION: Influenza like illness TECHNIQUE: Chest 2 views COMPARISON: 08/15/2020, 02/28/2022 FINDINGS: Cardiovascular and mediastinum: Heart size and vasculature are normal incaliber and appearance. Lungs and pleural spaces: Lungs are clear. No sign of infiltrate ormass. No sign of pleural effusion. No pneumothorax. Bones and soft tissues: No significant findings. IMPRESSION: No acute findings. Dictated by Devang Recinos MD @ 05/17/2024 12:25:16 PM (Electronically Signed) Shirley LOPEZ GENERAL IMAGING Final Result * (ABNORMAL) COVID/FLU/RSV PANEL (05/17/2024 10:24 AM [employer]) COVID 19 [facility] Negative Negative 05/17/2024 4:38 PM [employer] [facility] Comment:All PCR tests are clark bject to false negative result due to variability in viral load and collection technique. A negative result does not rule out a SARS-CoV-2 infection. Clinical correlation required. INFLUENZA A PCR Negative 4:38 PM [employer] [facility] INFLUENZA B PCR Negative 4:38 PM [employer] [facility] Respiratory Syncytial Virus Positive(A) 05/17/2024 4:38 PM [employer] [facility] Swab NASOPHARYNGEAL SWAB / Unknown Non-Blood / Unknown 05/17/2024 10:24 AM [employer] 05/17/2024 10:24 AM [employer] Shirley LOPEZ MICROBIOLOGY Final Result [facility] [address] [place] [address], * HPV HIGH RISK (09/03/2023 8:56 AM CDT) TYPE 16 Negative Negative 09/08/2023 2:09 PM CDT [facility] TYPE 18 Negative Negative 09/08/2023 2:09 PM CDT [facility] OTHER HIGH RISK TYPES Negative Negative 09/08/2023 2:09 PM CDT [facility] Other (Cervical) 09/03/2023 8:56 AM CDT 09/07/2023 9:56 AM CDT Narrative [facility] - 09/08/2023 2:09 PM CDT HPV types 16, 18, 31, 33, 35, 39, 45, 51, 52, 56, 58, 59, 66 and 68 DNA were undetectable or below the pre-set threshold. Methodology: [employer]as 4800 HPV Test us Stacie Key PA-C MICROBIOLOGY Final Resu lt [facility] [address] [place] [address], * LIPID PANEL (01/07/2022 9:16 AM CDT) CHOLESTEROL,TOTAL 186 100 - 199 mg/dL 01/08/2022 5:04 AM CDT [facility] TRIGLYCERIDES 121 <150 mg/dL 01/08/2022 5:04 AM CDT [facility] HDL CHOLESTEROL 68 >40 mg/dL 5:04 AM CDT [facility] NON-HDL CHOLESTEROL 118 <145 mg/dl 01/08/2022 5:04 AM CDT [facility] CHOL/HDL RATIO 2.74 <4.50 01/08/2022 5:04 AM CDT [facility] LDL CHOLESTEROL 94 <=130 mg/dL 01/08/2022 5:04 AM CDT [facility] VLDL CHOLESTEROL 24 <=30 mg/dL 01/08/2022 5:04 AM CDT [facility] PROVIDER ORDERED STATUS RANDOM 01/08/2022 5:04 AM CDT [facility] Blood BLOOD SPECIMEN / Unknown Venipuncture / Unknown 01/07/2022 9:16 AM CDT 01/07/2022 9:17 AM CDT us Ruth Diaz MD CHEMISTRY Final Resul t [facility] [address] [place] [address], [place] * COLONOSCOPY DIAGNOSTIC (02/28/2019 12:00 PM [employer]) Jessica LOEPZ GI PROCEDURE ORD Final Result * SCAN-MAMMOGRAPHY REPORT (06/22/2018 12:00 AM [employer]) Anatomical Region Laterality Modality Other us Scanner OTHER Final Result * ANTI HCV (03/20/2016 4:19 PM [employer]) HEPATITIS C ANTIBODY Non-Reacti ve Non-Reacti ve 03/20/2016 10:01 PM [employer] [facility] Blood BLOOD SPECIMEN / Unknown Venipuncture / Unknown 03/20/2016 4:19 PM [employer] 03/20/2016 4:19 PM [employer] Narrative [facility] - 03/20/2016 10:01 PM [employer] Antibodies to HCV not detected; does not exclude the possibility of exposure to HCV. us Kody Atkinson MD SEND OUTS Final Result [facility] [address] [place] [address], * ANTI HIV 1/2 (02/09/2014 11:38 AM CDT) HIV-1/HIV-2 ANTIBODY Non-Reacti ve Non-Reacti ve 02/09/2014 6:27 PM CDT [facility] Blood specimen (specimen) BLOOD SPECIMEN / Unknown Venipuncture / Unknown 02/09/2014 11:38 AM CDT 02/09/2014 11:38 AM CDT Narrative [facility] - 02/09/2014 6:27 PM CDT HIV-1 p24 and HIV-1/HIV-2 Ab not detected us Sampson Soto MD SEND OUTS Final Resul t [facility] [address] [place] [address], from Last 3 Months or Most Recently Relevant to Health Maintenance Additional Health Concerns Infection Onset Date Last Indicated RESPIRATORY SYNCYTIAL VIRUS (RSV) 05/17/2024 05/17/2024 Insurance [employer] [place] [employer] Care Teams Senior Outside Sales Representative Relationship Specialty Start Date End Date Ruth Diaz MD [address] [place] [id number] PCP - General Family Practice 08/17/19 Frances Farfan MD [address] [place] [address] Obstetrics and Gynecology 08/04/13
[2024-05-20 11:57] VITALS: BP 129/71; PULSE 91; RESP 22; TEMP 37; O2SAT 93; BMI 48.3
--- OUTSIDE RECORDS SUMMARY | 2024-05-20 13:00 | XMS_ITS | Clinical Summary ---
Author Organization [facility] Address [place], [place] [address] Care Team Providers Care Mud Analysis Well Logging Operator Name Role Phone RudyesFrances MD Unavailable [phone] Ruth Diaz MD Primary Care Provider [phone] Allergies No known active allergies Medications fluticasone [...] Department Care Team Description 05/17/2024 10:30 AM ASSISTANT FLOOR COVERING PRINTER Ancillary Procedure [facility] [address] [place] [address] Arrived 05/17/2024 9:55 AM ASSISTANT FLOOR COVERING PRINTER Office Visit [facility] [address] [place] [address] Shirley Alejandre PA Cough (started 4 days ago); Ear Problem (left ear ); Throat Problem (sore throat ) 05/17/2024 Telephone [facility] [address] [place] [address] Shirley Alejandre PA Med Change Request (dur reject on albuterol) 05/17/2024 Travel 04/25/2024 Refill [facility] [address] [place] [address] Ruth Diaz MD Medication Management from Last [...] Mother uterine Cancer-breast Mother Heart Disease Mother AL at 52, rece ntly had vascular surgery [...] on file Legal Sex Female 5:26 AM ASSISTANT FLOOR COVERING PRINTER Gender Identity Not on file Sexual Orientation [...] Comments Blood Pressure 116/80 05/17/2024 9:59 AM ASSISTANT FLOOR COVERING PRINTER Pulse 90 05/17/2024 9:59 AM ASSISTANT FLOOR COVERING PRINTER Temperature 36.8 C (98.2 F) 05/17/2024 9:59 AM ASSISTANT FLOOR COVERING PRINTER Respiratory Rate 16 08/06/2020 7:03 PM CDT Oxygen Saturation 97% 05/17/2024 9:59 AM ASSISTANT FLOOR COVERING PRINTER Inhaled Oxygen Concentration - - Weight 117.5 kg (259 lb) 05/17/2024 9:59 AM ASSISTANT FLOOR COVERING PRINTER Height 160 cm (5' 3) 08/13/2022 3:32 [...] PA AND LATERAL TITI 05/17/2024 10:32 AM ASSISTANT FLOOR COVERING PRINTER Influenza-like illness Bronchitis with bronchospasm COVID/FLU/RSV PANEL Routine 05/17/2024 1 0:24 AM ASSISTANT FLOOR COVERING PRINTER Influenza-like illness HPV HIGH RISK Routine 09/03/2023 8:56 AM CDT LIPID PANEL Routine 01/07/2022 9:16 AM CDT Lipid screening COLONOSCOPY DIAGNOSTIC Routine 02/28/2019 12:00 PM ASSISTANT FLOOR COVERING PRINTER Abdominal pain, LUQ (left upper quadrant) Chronic diarrhea SCAN-MAMMOGRAPHY REPORT 06/22/2018 12:00 AM ASSISTANT FLOOR COVERING PRINTER ANTI HCV Routine 03/20/2016 4:19 PM ASSISTANT FLOOR COVERING PRINTER Fatty liver ANTI HIV 1/2 Routine 02/09/2014 11:38 AM CDT Vasculitis from Last 3 Months or Most Recently Relevant to Health Maintenance Results * XR CHEST 2 VIEWS PA AND LATERAL (05/17/2024 10:32 AM ASSISTANT FLOOR COVERING PRINTER) Anatomical Region Laterality Modality CHEST, THORAX, Lung, HEART Compu rogelio Radiography 05/17/2024 12:2 5 PM ASSISTANT FLOOR COVERING PRINTER Impressions 05/17/2024 12:25 PM ASSISTANT FLOOR COVERING PRINTER No acute findings. Dictated by Devang Recinos MD @ 05/17/2024 12:25:16 PM (Electronically Signed) Narrative 05/17/2024 12:25 PM ASSISTANT FLOOR COVERING PRINTER For Patients: As a result of the [...] * (ABNORMAL) COVID/FLU/RSV PANEL (05/17/2024 10:24 AM ASSISTANT FLOOR COVERING PRINTER) COVID 19 [facility] MOLECULAR Negative Negative 05/17/2024 4:38 PM ASSISTANT FLOOR COVERING PRINTER [facility] Comment:All PCR tests are clark bject to false negative result due to variability in viral load and collection technique. A negative result does not rule out a SARS-CoV-2 infection. Clinical correlation required. INFLUENZA A PCR Negative 4:38 PM ASSISTANT FLOOR COVERING PRINTER [facility] INFLUENZA B PCR Negative 4:38 PM ASSISTANT FLOOR COVERING PRINTER [facility] Respiratory Syncytial Virus Positive(A) 05/17/2024 4:38 PM ASSISTANT FLOOR COVERING PRINTER [facility] Swab NASOPHARYNGEAL SWAB / Unknown Non-Blood / Unknown 05/17/2024 10:24 AM ASSISTANT FLOOR COVERING PRINTER 05/17/2024 10:24 AM ASSISTANT FLOOR COVERING PRINTER Shirley LOPEZ MICROBIOLOGY Final Result [facility] [address] [place] [place] [address], * HPV HIGH RISK (09/03/2023 8:56 AM CDT) TYPE 16 Negative Negative 09/08/2023 2:09 PM CDT [facility] TYPE 18 Negative Negative 09/08/2023 2:09 PM CDT [facility] OTHER HIGH RISK TYPES Negative Negative 09/08/2023 2:09 PM CDT [facility] Other (Cervical) 09/03/2023 8:56 AM CDT 09/07/2023 9:56 AM CDT Narrative [facility] - 09/08/2023 2:09 PM CDT HPV types 16, 18, 31, 33, 35, 39, 45, 51, 52, 56, 58, 59, 66 and 68 DNA were undetectable or below the pre-set threshold. Methodology: [employer] 4800 HPV Test us Stacie Key PA-C MICROBIOLOGY Final Resu lt [facility] [address] [place] [address], * LIPID PANEL (01/07/2022 9:16 AM CDT) CHOLESTEROL,TOTAL 186 100 - 199 mg/dL 01/08/2022 5:04 AM CDT [facility] TRIGLYCERIDES 121 <150 mg/dL 01/08/2022 5:04 AM CDT [facility] HDL CHOLESTEROL 68 >40 mg/dL 5:04 AM CDT [facility] NON-HDL CHOLESTEROL 118 <145 mg/dl 01/08/2022 5:04 AM CDT [facility] CHOL/HDL RATIO 2.74 <4.50 01/08/2022 5:04 AM CDT [facility] LDL CHOLESTEROL 94 <=130 mg/dL 01/08/2022 5:04 AM CDT [facility] VLDL CHOLESTEROL 24 <=30 mg/dL 01/08/2022 5:04 AM CDT [facility] PROVIDER ORDERED STATUS RANDOM 01/08/2022 5:04 AM CDT [facility] Blood BLOOD SPECIMEN / Unknown Venipuncture / Unknown 01/07/2022 9:16 AM CDT 01/07/2022 9:17 AM CDT us Ruth Diaz MD CHEMISTRY Final Resul t [facility] [address] [place] [address], [place] * COLONOSCOPY DIAGNOSTIC (02/28/2019 12:00 PM ASSISTANT FLOOR COVERING PRINTER) Jessica LOPEZ GI PROCEDURE ORD Final Result * SCAN-MAMMOGRAPHY REPORT (06/22/2018 12:00 AM ASSISTANT FLOOR COVERING PRINTER) Anatomical Region Laterality Modality Other us Scanner OTHER Final Result * ANTI HCV (03/20/2016 4:19 PM ASSISTANT FLOOR COVERING PRINTER) HEPATITIS C ANTIBODY Non-Reacti ve Non-Reacti ve 03/20/2016 10:01 PM ASSISTANT FLOOR COVERING PRINTER [facility] Blood BLOOD SPECIMEN / Unknown Venipuncture / Unknown 03/20/2016 4:19 PM ASSISTANT FLOOR COVERING PRINTER 03/20/2016 4:19 PM ASSISTANT FLOOR COVERING PRINTER Narrative [facility] - 03/20/2016 10:01 PM ASSISTANT FLOOR COVERING PRINTER Antibodies to HCV not detected; does not exclude the possibility of exposure to HCV. us Kody Atkinson MD SEND OUTS Final Result [facility] [address] [place] [address], * ANTI HIV 1/2 (02/09/2014 11:38 AM CDT) HIV-1/HIV-2 ANTIBODY Non-Reacti ve Non-Reacti ve 02/09/2014 6:27 PM CDT [facility] Blood specimen (specimen) BLOOD SPECIMEN / Unknown Venipuncture / Unknown 02/09/2014 11:38 AM CDT 02/09/2014 11:38 AM CDT Narrative [facility] - 02/09/2014 6:27 PM CDT HIV-1 p24 and HIV-1/HIV-2 Ab not detected us Sampson Soto MD SEND OUTS Final Resul t [facility] [address] [place] [address], from Last 3 Months or Most Recently Relevant to Health Maintenance Additional Health Concerns Infection Onset Date Last Indicated RESPIRATORY SYNCYTIAL VIRUS (RSV) 05/17/2024 05/17/2024 Insurance [employer] [place] [facility] [employer] Care Teams Mud Analysis Well Logging Operator Relationship Specialty Start Date End Date Ruth Diaz MD [address] [place] [id number] PCP - General Family Practice 08/17/19 Frances Farfan MD [address] [place] [address] Obstetrics and Gynecology 08/04/13
--- NOTE | 2024-05-20 13:15 | ED.GENADULT ---
HPI - General Adult General Chief complaint: Cough Stated complaint: Cogh, chest tightness, has RSV Time Seen by Provider: 05/20/24 12:49 Source: patient Mode of arrival: ambulatory Limitations: no limitations History of Present Illness HPI narrative: 53-year-old female presenting with worsening cough. Patient was diagnosed this week with RSV and thought she was doing okay but in the last 24 hours symptoms have gotten worse with increased cough. She had a fever 101 yesterday. No vomiting. She feels short of breath with activity. Hard time sleeping secondary to continuous cough. Denies any history of COPD or asthma. Quit smoking in 2013. Related Data Home Medications ?Medication ?Instructions ?Recorded ?Confirmed omega-3 fatty acids 1,000 mg 1,000 mg PO QDAY 07/20/23 05/12/24 capsule Previous Rx's ?Medication ?Instructions ?Recorded cholestyramine (with sugar) 4 gram 4 ea PO QDAY #120 ea 05/12/24 powder for susp in a packet famotidine 20 mg tablet 20 mg PO BID #180 tabs 05/12/24 propranolol 10 mg tablet 10 mg PO TID PRN anxiety #90 tabs 05/12/24 sumatriptan succinate 100 mg tablet See Rx Instructions PO .COMPLEX 05/12/24 #10 tabs topiramate 25 mg tablet (Topamax) 25 mg PO QDAY #30 tabs 05/12/24 prednisone 20 mg tablet 20 mg PO DAILY 5 days #5 tabs 05/20/24 Allergies Allergy/AdvReac Type Severity Reaction Status Date / Time No Known Allergies Allergy Verified 05/20/24 11:56 Review of Systems Status of ROS: Reports: 10 or more systems reviewed and unremarkable except as noted in History and below [facility] Medical History Adenomyosis ?N80.03 - Adenomyosis of the uterus (ICD-10) Long QT interval ?R94.31 - Abnormal electrocardiogram [ECG] [EKG] (ICD-10) Gestational diabetes ?O24.419 - Gestational diabetes mellitus in , unspecified control (ICD-10) Surgical History Status post arthroscopy of left knee ?Z98.890 - Other specified postprocedural states (ICD-10) History of tonsillectomy (2002) ?Z90.89 - Acquired absence of other organs (ICD-10) History of lateral meniscus repair of left knee (10/2019) ?Z98.890 - Other specified postprocedural states (ICD-10) History of laparoscopic cholecystectomy (2014) ?Z90.49 - Acquired absence of other specified parts of digestive tract (ICD-10) History of dilation and curettage (2000) ?Z98.890 - Other specified postprocedural states (ICD-10) History of colposcopy with cervical biopsy (1992) ?Z98.890 - Other specified postprocedural states (ICD-10) History of section ?Z98.891 - History of uterine scar from previous surgery (ICD-10) Family History Mother Coronary artery disease Breast cancer Uterine cancer Family/Other Depression Daughter Fibromyalgia Father Prostate cancer 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 Exercises 5 t 6 times per week- water at [employer], has started weights also 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, home health aide, 2 kids Rarely consumes alcohol What is your current living situation?: I presently have a place to live Problems where you live: no known problems In the past 12 months, utilities in danger of being shut off: no In past 12 months, lack of transportation kept you from medical appts, meetings, work, or getting things needed for daily living: no In the past 12 mos, have been you worried that your food would run out before you had money to buy more?: never true In the past 12 mos, the food you bought just didn't last and you didn't have money to buy more?: never true Smoking Status: Former smoker Do you use any of these nicotine containing products: None How often do you have a drink containing alcohol: 2-4 times a month AUDIT-C Alcohol total score: 2 Non-prescribed substance use: denies use How often does anyone, including family, friends and others, physically hurt you: never How often does anyone, including family, friends and others, insult or talk down to you: never How often does anyone, including family, friends and others, threaten you with harm: never How often does anyone, including family, friends and others, scream or curse at you: never service: No Exam Narrative: Exam Narrative: Well-nourished well-developed patient in no acute distress. Alert and oriented. Answers questions appropriately. Mood and affect are appropriate. Thoughts are goal oriented and rational. No tangential or magical thinking noted. Patient speaks in full sentences without needing to catch her breath. Coughs quite a bit during our time together. HEENT: Normocephalic atraumatic. Extraocular muscles are intact. Conjunctivae are moist without any icterus noted. Moist mucous membranes. Posterior pharynx is normal. Cardiovascular: Heart is regular rate and rhythm S1 and S2 are present without any murmurs. Lungs: Bilateral wheezing, right greater than the left. Abdomen: Soft and nontender nondistended with normal bowel sounds. Extremities: Bilateral lower extremities are without edema. Skin: Well perfused without any obvious rashes. Const: Vital Signs, click to edit/add: Vital Signs - 24 hr 05/20/24 11:57 Temperature 98.6 F Pulse Rate [Pulse Oximeter] 91 Respiratory Rate 22 Blood Pressure [Ri ght Forearm] 129/71 Pulse Oximetry 93 Oxygen Delivery Me thod Room Air Course Course ED Course: We ambulated the patient to check her oxygen saturation and she was in the mid to upper 90s with ambulation. She received a DuoNeb. She did have some relief after this, re-examination revealed that her wheezing had resolved. CBC unremarkable. Chest x-ray: Read by me, does not show any acute infiltrates. Negative for influenza and COVID. Vital Signs Vital signs: Initial Vital Signs Temperature 98.6 F 05/20/24 11:57 Temperature Source Temporal Artery Scan 05/20/24 11:57 Pulse Rate 91 05/20/24 11:57 Pulse Rhythm Regular 05/20/24 11:57 Respiratory Rate 22 05/20/24 11:57 Blood Pressure 129/71 05/20/24 11:57 Blood Pressure Mean 90 05/20/24 11:57 Blood Pressure Position Sitting 05/20/24 11:57 Pulse Oximetry 93 05/20/24 11:57 Oxygen Delivery Method Room Air 05/20/24 11:57 Vital Signs Temperature 98.6 F 05/20/24 11:57 Pulse Rate 91 05/20/24 11:57 Respiratory Rate 22 05/20/24 11:57 Blood Pressure 129/71 05/20/24 11:57 Pulse Oximetry 93 05/20/24 11:57 Oxygen Delivery Method Room Air 05/20/24 11:57 Temperature 98.6 F 05/20/24 11:57 Pulse Rate 91 05/20/24 11:57 Respiratory Rate 22 05/20/24 11:57 Blood Pressure 129/71 05/20/24 11:57 Pulse Oximetry 93 05/20/24 11:57 Oxygen Delivery Method Room Air 05/20/24 11:57 Medications Administered Medications: Discontinued Medications Generic Name Dose Route Start Last Admin Trade Name Freq PRN Reason Stop Dose Admin Albuterol/Ipratropium 1 neb 05/20/24 13:12 05/20/24 13:28 Iprat-Albut 0.5-2.5 Mg/3 Ml Neb IH 05/20/24 13:13 1 neb ONCE ONE Administration Medical Decision Making MDM Narrative Medical decision making narrative: 53-year-old female with RSV and subsequent wheezing. Patient already has an albuterol inhaler at home which she has been using b.i.d.. We discussed using that more frequently. Also put her on prednisone for the next 5 days. Lab Data Labs: Lab Results 05/20/24 05/20/24 Range/Units 13:00 13:24 WBC 6.22 (4.50-11.00) K/uL RBC 5.46 H (4.00-5.20) m/uL Hgb 14.6 (12.0-16.0) gm/dL Hct 45.9 (33.0-51.0) % MCV 84 (80-100) fL MCH 27 (26-34) pg MCHC 32 (32-36) gm/dL RDW Coeff of Jeannette 12.5 (11.5-15.5) % Plt Count 148 (140-440) K/uL Neut % (Auto) 51.0 (42.0-72.0) % Lymph % (Auto) 36.7 (20-44) % Schuyler % (Auto) 7.7 (0.0-11.0) % Eos % (Auto) 4.3 (0.0-7.0) % Baso % (Auto) 0.3 (0.0-3.0) % Neut # (Auto) 3.17 (1.7-7.0) K/uL Lymph # (Auto) 2.28 (0.90-2.90) K/uL Schuyler # (Auto) 0.50 (0.00-0.90) K/UL Eos # (Auto) 0.27 (0.00-0.50) K/uL Baso # (Auto) 0.02 (0.00-0.30) K/uL Abs Immat Gran (auto) 0.00 (0.00-0.30) K/uL Imm/Tot Granulo (auto) 0.0 % SARS-CoV-2 (PCR) Negative SARS-CoV-2 (Negative) Influenza Type A (PCR) Negative PCR FLU A (Negative) Influenza Type B (PCR) Negative PCR FLU B (Negative) Imaging Data Chest x-ray: Attestation: I have reviewed the pertinent imaging results. Radiologist's impression: INDICATION: Shortness of breath TECHNIQUE: Chest radiograph 2 views COMPARISON: None FINDINGS: The sensitivity and specificity of the exam are moderately limited by the patient`s body habitus. Mediastinum: The mediastinum is normal in appearance. The heart silhouette is normal in size and morphology. Lung: Both lungs are unremarkable in appearance. No sign of pleural effusion seen. No pneumothorax is identified. Bone and Soft tissue: Unremarkable for age. IMPRESSION: 1. No acute cardiopulmonary disease is seen. Discharge Plan Discharge Clinical Impression: RSV infection, Bilateral wheezing Patient Disposition: Home, Self-Care Condition: Stable Additional Instructions: Okay to use albuterol inhaler as follows: 2-4 inhalations every 20 minutes for 3 doses if needed. Then can lengthen the interval to every 3-4 hours. Take steroid as prescribed. Return to the ER if your symptoms are getting worse instead of better over the next 2-3 days. Prescriptions: New prednisone 20 mg tablet 20 mg PO DAILY 5 Days Qty: 5 0RF No Action omega-3 fatty acids 1,000 mg capsule 1,000 mg PO QDAY topiramate [Topamax] 25 mg tablet 25 mg PO QDAY Qty: 30 3RF propranolol 10 mg tablet 10 mg PO TID PRN (Reason: anxiety) Qty: 90 3RF famotidine 20 mg tablet 20 mg PO BID Qty: 180 3RF cholestyramine (with sugar) 4 gram powder in packet 4 ea PO QDAY Qty: 120 12RF sumatriptan succinate 100 mg tablet See Rx Instructions PO .COMPLEX Qty: 10 0RF Rx Instructions: take 1 tab at onset of headache; if no relief, may repeat 1 tab after at least 2 hrs; max = 2 tabs/24 hrs PO Follow Up/Referrals: Aubree Oconnell MD [Primary Care Provider] - Stand Alone Forms: [facility] Info Instructions
[2024-05-20] MEDS: IPRAT-ALBUT 0.5-2.5 MG/3 ML NEB 1 NEB IH (13:28)
[2024-05-20 13:32] LABS: Basophils Absolute Auto 0.02 K/uL (0.00-0.30); Basophils Percent Auto 0.3 % (0.0-3.0); Eosinophils Absolute Auto 0.27 K/uL (0.00-0.50); Eosinophils Percent Auto 4.3 % (0.0-7.0); Hematocrit 45.9 % (33.0-51.0); Hemoglobin* 14.6 gm/dL (12.0-16.0); Lymphocytes Absolute Auto 2.28 K/uL (0.90-2.90); Lymphocytes Percent Auto 36.7 % (20-44); Mean Corpuscular HGB Conc 32 gm/dL (32-36); Mean Corpuscular Hemoglobin 27 pg (26-34); Mean Corpuscular Volume 84 fL (80-100); Monocytes Percent Auto 7.7 % (0.0-11.0); Neutrophils Absolute Auto 3.17 K/uL (1.7-7.0); Platelet Count* 148 K/uL (140-440); RDW Coefficient of Variation % 12.5 % (11.5-15.5); Red Blood Count 5.46 m/uL (4.00-5.20); White Blood Count* 6.22 K/uL (4.50-11.00)
[2024-05-20 13:33] LABS: Slide Review Reflex No
[2024-05-20 13:51] LABS: PCR FLU A Negative PCR FLU A (Negative); PCR FLU B Negative PCR FLU B (Negative); SARS PCR* Negative SARS-CoV-2 (Negative)
== END 2024-05-20 14:08 | disposition home or self-care (01) ==
PROVIDERS: Emergency Provider Family Medicine; PCP Family Medicine
DX: R05.9 Cough, unspecified (principal); B97.4 Respiratory syncytial virus as the cause of diseases classified elsewhere; R06.2 Wheezing
CPT/HCPCS: 36415; 71046; 85025; 87631; 99284

== ENCOUNTER 2024-07-07 09:35 | Outpatient (CLI) | payer MEDICAID, SELFPAY | END 2024-07-07 09:36 | disposition home or self-care (01) | LOC: FRMREF 09:45 | PROVIDERS: PCP Family Medicine; Visit Provider Family Medicine | DX: M70.61 Trochanteric bursitis, right hip (principal); M70.62 Trochanteric bursitis, left hip; R29.898 Other symptoms and signs involving the musculoskeletal system | CPT/HCPCS: 86140 ==

== ENCOUNTER 2024-08-01 08:30 | Outpatient (RCR) | payer MEDICAID, SELFPAY | END 2024-11-29 23:59 | disposition home or self-care (01) | PROVIDERS: PCP Family Medicine; Visit Provider Family Medicine | DX: R32 Unspecified urinary incontinence (principal); M51.369 Other intervertebral disc degeneration, lumbar region without mention of lumbar back pain or lower extremity pain; M17.0 Bilateral primary osteoarthritis of knee; M70.61 Trochanteric bursitis, right hip; M70.62 Trochanteric bursitis, left hip; M79.671 Pain in right foot; S83.206D Unspecified tear of unspecified meniscus, current injury, right knee, subsequent encounter; G56.02 Carpal tunnel syndrome, left upper limb; R26.2 Difficulty in walking, not elsewhere classified; Z51.89 Encounter for other specified aftercare | CPT/HCPCS: 97110; 97112; 97162; 97535 ==

== ENCOUNTER 2024-09-15 10:08 | Outpatient (CLI) | payer MEDICAID, SELFPAY | END 2024-09-15 10:09 | disposition home or self-care (01) | PROVIDERS: PCP Family Medicine; Visit Provider Physician Assistant | DX: Z00.00 Encounter for general adult medical examination without abnormal findings (principal); F41.8 Other specified anxiety disorders; R73.03 Prediabetes; Z13.6 Encounter for screening for cardiovascular disorders | CPT/HCPCS: 80053; 80061; 84443 ==

== ENCOUNTER 2024-09-22 10:29 | Outpatient (CLI) | payer MEDICAID, SELFPAY ==
--- NOTE | 2024-09-22 10:45 | CRLHL7_ITS ---
For Patients: As a result of the Century Cures Act, medical imaging exams and procedure reports are released immediately into your electronic medical record. You may view this report before your referring provider. If you have questions, please contact your health care provider. CLINICAL HISTORY: PELVIC PAIN COMPARISON: Ultrasound 11/06/2022 TECHNIQUE: 2D lopez-scale ultrasound. In addition, color Doppler and spectral Doppler analysis was performed of the pelvis using a transabdominal and transvaginal approach. Transvaginal imaging performed to better visualize the endometrial stripe and ovaries. FINDINGS: The myometrium has a diffusely coarsened echotexture which is difficult to penetrate. Similar cystic area associated with the section scar which measures 2.2 x 1.2 x 1.7 cm. The uterus measures 8.6 x 3.9 x 4.2 cm. The endometrium is difficult to visualize and measures approximately 2.7 millimeters. The left ovary measures 2.9 x 1.6 x 1.7 cm. The right ovary is not visualized, likely from the presence of bowel loops. The left ovary demonstrates normal arterial and venous blood flow on color Doppler and spectral Doppler analysis. There are no suspicious fluid collections within the cul-de-sac. IMPRESSION: Diffusely coarsened myometrial echotexture which could suggest adenomyosis. Nonvisualization of the right ovary. Left ovary appears normal. Stable benign cystic area associated with the section scar. Dictated by Devang Recinos MD @ 09/26/2024 5:44:12 AM (Electronically Signed)
== END 2024-09-22 10:30 | disposition home or self-care (01) ==
LOC: US 10:30
PROVIDERS: PCP Family Medicine; Visit Provider Physician Assistant
DX: R10.2 Pelvic and perineal pain (principal)
CPT/HCPCS: 76830; 76856; 93976

== ENCOUNTER 2025-01-24 07:03 | Emergency (ER) | payer MEDICAID, SELFPAY ==
--- OUTSIDE RECORDS SUMMARY | 2025-01-24 07:05 | XMS_ITS | Clinical Summary ---
Author Organization [employer] [facility] Address [address] [place] [address] Care Team Providers Care Crucible Furnace Tender Name Role Phone SuppesFrances MD Unavailable [phone] Ruth Diaz MD Primary Care Provider [phone] Allergies No known active allergies Medications famotidine (PEPCID) 20 mg tabletIndications:G astric reflux TAKE ONE TABLET BY MOUTH TWICE DAILY IF NEEDED FOR HEARTBURN 180 Tablet 3 08/19/19 24 Active LORazepam (ATIVAN) 1 mg tabletIndications:S nimco stenosis of lumbar region at multiple levels Take 2 Tablets (2 mg) by mouth one time for 1 dose. Take one tablet prior to mri - august repeat times one 2 Tablet 09/16/19 24 Active cholestyramine-sucr ose 4 G (QUESTRAN) 4 gram packetIndications:H istory of laparoscopic cholecystectomy MIX AND DRINK CONTENTS OF 1 PACKET ACCORDING TO PACKAGE DIRECTIONS TWICE DAILY 60 Packet 05/03/19 25 Active albuterol HFA (ProAir HFA) 90 mcg/actuation inhalerIndications: Influenza-like illness,Bronchitis with bronchospasm Inhale 1-2 Puffs by mouth every 6 hours if needed for Shortness of Breath 1st choice. 1 Each 05/17/19 25 Active fluticasone (50 mcg per actuation) nasal solution (FLONASE)Indication s:Nasal congestion Inhale 2 Sprays into affected nostril(s) once daily. 48 g 3 10/25/19 25 Active durable medical equipment (DME)Indications:Pa in of left heel,Right ankle pain, unspecified chronicity,Posterio r tibial tendon dysfunction (PTTD) of right lower extremity,Posterior tibial tendonitis, right AIR LIFT PTTD BRACE, MEDIUM, RIGHT, REF: 02PMR 1 Each 10/27/19 25 Active Active Problems Problem Noted Date Diagnosed Date [...] Encounters Date Type Department Care Team Description 11/04/2024 Orders Only [facility] [address] [place] [address] Devin Nevarez DPM 1 scan: (1-Ord) [facility], RT ANKLE W/O CONTRAST, 11/03/2024 10/26/2024 2:45 PM CDT Ancillary Procedure [facility] [place] [address] 10/26/2024 2:30 PM CDT Office Visit [facility] [address] [place] [address] Devin Nevarez DPM Consult (Bilateral foot pain) 10/26/2024 2:15 PM CDT Ancillary Procedure [facility] [address] [place] [address] 10/26/2024 Travel 10/24/2024 10:15 AM CDT Office [place] [facility] [place] [address] Lucia Clayton MD Leg Pain/problem (Leg pain and swelling behind right calve, pain moved to behind the knee, thigh and is in pelvic area now. Started about 3 weeks ago ); Ear Problem (Left ear pain.) 10/24/2024 Travel from Last 3 Months Immunizations Immunization Administration Dates Next Due AMB Influenza, IIV3 [...] Mother uterine Cancer-breast Mother Heart Disease Mother [place] at 52, rece ntly had vascular surgery [...] on file Legal Sex Female 5:26 AM [employer] BLENDER Gender Identity Not on file Sexual Orientation [...] Sign Reading Time Taken Comments Blood Pressure 124/80 10/26/2024 4:03 PM CDT Pulse 87 10/26/2024 4:03 PM CDT Temperature 36.8 C (98.2 F) 05/17/2024 9:59 AM [employer]ER AND BLENDER Respiratory Rate 16 08/06/2020 7:03 PM CDT Oxygen Saturation 95% 10/26/2024 4:03 PM CDT Inhaled Oxygen Concentration - - Weight 117.5 kg (259 lb) 05/17/2024 9:59 AM M[employer]ER AND BLENDER Height 160 cm (5' 3) 08/13/2022 3:32 PM CDT Body Mass Index 45.88 08/13/2022 3:32 PM CDT Plan of Treatment Health Maintenance Due Date Last Done Comments Hepatitis B series for 19+ ( 1 of 3 - 19+ 3-dose series) 1988 Mammogram for age 45-75 06/23/2019 06/23/19 19, [...] history exists COVID-19 vaccine series ( season) 2024 07/19/2020, 06/21/2020 Influenza Vaccine (#1) 2024 , 05/11/2018, 04/20/2018, Additional history exists Lipids for age 45-75 01/07/2027 01/07/2022, 12/09/2017, 12/05/2015, Additional history exists Pap test for age 21-65 09/02/2028 , 09/03/2023, 06/29/2018, Additional history exists Colonoscopy through age 75 02/28/202902/28, 02/28/2019, 02/28/2019, Additional history exists RSV vaccine for adults or (1 - 1-dose 75+ series) 2044 HIV for age 15-65 Completed 02/09/2014, 09/24/2006 Hepatitis C screening for ag e 18-79 Completed 03/20/2016, 02/09/2014 Procedures Procedure Name Priority Date/Time Associated Diagnosis Comments MR ANKLE RIGHT WO Routine 11/03/2024 12: 00 AM CDT Right ankle pain, unspecified chronicity Posterior tibial tendon dysfunction (PTTD) of right lower extremity Posterior tibial tendonitis, right XR ANKLE 3 VIEWS RIGHT Routine 10/26/2024 2:17 PM CDT Right ankle pain, unspecified chronicity XR ANKLE 3 VIEWS LEFT Routine 10/26/2024 2:16 PM CDT Pain of left heel CK TOTAL Routine 10/24/2024 10:47 AM CDT Muscle cramping FERRITIN Routine 10/24/2024 10:47 AM CDT Muscle cramping MAGNESIUM Routine 10/24/2024 10:47 AM CDT Muscle cramping VITAMIN B12 Routine 10/24/2024 10:47 AM CDT Muscle cramping BASIC METABOLIC PANEL Routine 10/24/2024 10:47 AM CDT Muscle cramping HPV HIGH RISK Routine 09/03/2023 8:56 AM CDT LIPID PANEL Routine 01/07/2022 9:16 AM CDT Lipid screening COLONOSCOPY DIAGNOSTIC Routine 02/28/2019 12:00 PM MIXER AND BLENDER Abdominal pain, LUQ (left upper quadrant) Chronic diarrhea SCAN-MAMMOGRAPHY REPORT 06/22/2018 12:00 AM MIXER AND BLENDER ANTI HCV Routine 03/20/2016 4:19 PM MIXER AND BLENDER Fatty liver ANTI HIV 1/2 Routine 02/09/2014 11:38 AM CDT Vasculitis from Last 3 Months or Most Recently Relevant to Health Maintenance Results * MR ANKLE RIGHT WO (11/03/2024 12:00 AM CDT) Anatomical Region Laterality Modality ANKLE R Magnetic Resonan ce us Devin Nevarez DPM MR Final Res ult * XR ANKLE 3 VIEWS RIGHT (10/26/2024 2:17 PM CDT) Anatomical Region Laterality Modality ANKLES, ANKLE R Computed Radiogr aphy 10/27/2024 10:2 4 AM CDT Narrative 10/27/2024 10:24 AM CDT For Patients: As a result of the Cures Act, medical imaging exams and procedure reports are released immediately into your electronic medical record. You may view this report before your referring provider. If you have questions, please contact your health care provider. Indication: Right ankle pain, unspecified chronicity Technique: Right ankle 3 views Comparison: None Findings: Plantar and posterior calcaneal spurs. Small chronic ossicle dorsal to the distal talus. Mild spurring at the tibiotalar joint. No acute fracture. Impression: Calcaneal spurs. Degenerative joint disease. Dictated by Devang Recinos MD @ 10/27/2024 10:24:51 AM (Electronically Signed) Procedure Note Devang Recinos MD - 10/27/2024 For Patients: As a result of the s Act, medical imagingexams and procedure reports are released immediately into your electronicmedical record. You may view this report before your referring provider.If you have questions, please contact your health care provider. Indication: Right ankle pain, unspecified chronicity Technique: Right ankle 3 views Comparison: None Findings: Plantar and posterior calcaneal spurs. Small chronic ossicle dorsal to thedistal talus. Mild spurring at the tibiotalar joint. No acute fracture. Impression: Calcaneal spurs. Degenerative joint disease. Dictated by Devang Recinos MD @ 10/27/2024 10:24:51 AM (Electronically Signed) us Devin Nevarez DPM GENERAL IMAGING Final Res ult * XR ANKLE 3 VIEWS LEFT (10/26/2024 2:16 PM CDT) Anatomical Region Laterality Modality ANKLES, ANKLE L Computed Radiogr aphy 10/27/2024 10:2 3 AM CDT Narrative 10/27/2024 10:23 AM CDT For Patients: As a result of the s , medical imaging exams and procedure reports are released immediately into your electronic medical record. You may view this report before your referring provider. If you have questions, please contact your health care provider. Indication: Left heel pain Technique: Left ankle 3 views Comparison: None Findings: Large incompletely ossified posterior calcaneal spur with mild diffuse thickening of the distal Achilles tendon. No fracture. No synovitis. Mortise intact. Mild chronic changes of the medial malleolus. Impression: Chronic distal Achilles tendinosis with large posterior calcaneal spur. Dictated by Devang Recinos MD @ 10/27/2024 10:23:51 AM (Electronically Signed) Procedure Note Devang Recinos MD - 10/27/2024 For Patients: As a result of the s , medical imagingexams and procedure reports are released immediately into your electronicmedical record. You may view this report before your referring provider.If you have questions, please contact your health care provider. Indication: Left heel pain Technique: Left ankle 3 views Comparison: None Findings: Large incompletely ossified posterior calcaneal spur with mild diffusethickening of the distal Achilles tendon. No fracture. No synovitis.Mortise intact. Mild chronic changes of the medial malleolus. Impression: Chronic distal Achilles tendinosis with large posterior calcaneal spur. Dictated by Devang Recinos MD @ 10/27/2024 10:23:51 AM (Electronically Signed) Devin Nevarez DPM GENERAL IMAGING Final Res ult * MAGNESIUM (10/24/2024 10:47 AM CDT) MAGNESIUM 2.1 1.5 - 2.5 mg/dL [facility] Blood BLOOD SPECIMEN / Unknown 10/24/2024 10:47 AM CDT 10/24/2024 10:49 AM CDT Lucia Clayton MD CHEMISTRY Fi nal Result [facility] [employer] [address] [address], [place] [phone] [facility] [address] [place] [address] * FERRITIN (10/24/2024 10:47 AM CDT) FERRITIN 47 16 - 232 ng/mL [facility] Blood BLOOD SPECIMEN / Unknown 10/24/2024 10:47 AM CDT 10/24/2024 10:49 AM CDT Lucia Clayton MD CHEMISTRY Fi nal Result [facility] [employer] [facility] [address] [place] [address], [place] [phone] [facility] [address] [place] [address] * VITAMIN B12 (10/24/2024 10:47 AM CDT) Pathologist [facility] VITAMIN B12 400 200 - 1,100 pg/mL [facility] [place] Blood BLOOD SPECIMEN / Unknown 10/24/2024 10:47 AM CDT 10/24/2024 10:49 AM CDT Lucia Clayton MD CHEMISTRY Fi nal Result [address] [address], [employer] [address] * CK TOTAL (10/24/2024 10:47 AM CDT) [facility] CREATINE KINASE, TOTAL 60 21 - 240 U/L [facility] [place] Blood BLOOD SPECIMEN / Unknown 10/24/2024 10:47 AM CDT 10/24/2024 10:49 AM CDT Lucia Clayton MD CHEMISTRY Fi nal Result [facility] [address] [address], [employer] [address] * (ABNORMAL) BASIC METABOLIC PANEL (10/24/2024 10:47 AM CDT) [facility] GLUCOSE 109(H) 65 - 99 mg/dL [employer] [facility] [place] Comment: Fasting reference interval For someone without known diabetes, a glucose value between 100 and 125 mg/dL is consistent with prediabetes and should be confirmed with a follow-up test. UREA NITROGEN (BUN) 14 7 - 25 mg/dL [facility] [place] CREATININE 0.74 0.50 - 1.03 mg/dL [facility] EGFR 95 > OR = 60 mL/min/1. 73m2 [facility] BUN/CREATININE RATIO SEE NOTE: 6 - 22 (calc) [facility] [place] Comment: Not Reported: BUN and Creatinine are within reference range. SODIUM 139 135 - 146 mmol/L [facility] POTASSIUM 4.7 3.5 - 5.3 mmol/L [facility] CHLORIDE 102 98 - 110 mmol/L [facility] CARBON DIOXIDE 30 20 - 32 mmol/L [facility] ELECTROLYTE BALANCE 7 7 - 17 mmol/L (calc) [facility] CALCIUM 9.4 8.6 - 10.4 mg/dL [facility] Blood BLOOD SPECIMEN / Unknown 10/24/2024 10:47 AM CDT 10/24/2024 10:49 AM CDT Lucia Clayton MD CHEMISTRY Fi nal Result [facility] [employer] [address] [address], [employer] [address] * HPV HIGH RISK (09/03/2023 8:56 AM CDT) TYPE 16 Negative Negative 09/08/2023 2:09 PM CDT [facility] TYPE 18 Negative Negative 09/08/2023 2:09 PM CDT [facility] OTHER HIGH RISK TYPES Negative Negative 09/08/2023 2:09 PM CDT [facility] Other (Cervical) 09/03/2023 8:56 AM CDT 09/07/2023 9:56 AM CDT Narrative [facility] - 09/08/2023 2:09 PM CDT HPV types 16, 18, 31, 33, 35, 39, 45, 51, 52, 56, 58, 59, 66 and 68 DNA were undetectable or below the pre-set threshold. Methodology: Rao Anatoliy 4800 HPV Test july L Yesi MOE MICROBIOLOGY Final Resu lt [facility] [address] [place] [address], [place] * LIPID PANEL (01/07/2022 9:16 AM CDT) [facility] CHOLESTEROL,TOTAL 186 100 - 199 mg/dL 01/08/2022 5:04 AM CDT [facility] TRIGLYCERIDES 121 <150 mg/dL 01/08/2022 5:04 AM CDT [facility] HDL CHOLESTEROL 68 >40 mg/dL 5:04 AM CDT [facility] NON-HDL CHOLESTEROL 118 <145 mg/dl 01/08/2022 5:04 AM CDT [facility] CHOL/HDL RATIO 2.74 <4.50 01/08/2022 5:04 AM CDT [facility] LDL CHOLESTEROL 94 <=130 mg/dL 01/08/2022 5:04 AM CDT [facility] VLDL CHOLESTEROL 24 <=30 mg/dL 01/08/2022 5:04 AM CDT [facility] PROVIDER ORDERED STATUS RANDOM 01/08/2022 5:04 AM CDT [facility] Blood BLOOD SPECIMEN / Unknown Venipuncture / Unknown 01/07/2022 9:16 AM CDT 01/07/2022 9:17 AM CDT Ruth Diaz MD CHEMISTRY Final Resul t [facility] [address] [place] [address], [place] * COLONOSCOPY DIAGNOSTIC (02/28/2019 12:00 PM MIXER AND BLENDER) Jessica LOPEZ GI PROCEDURE ORD Final Result * SCAN-MAMMOGRAPHY REPORT (06/22/2018 12:00 AM MIXER AND BLENDER) Anatomical Region Laterality Modality Other Scanner OTHER Final Result * ANTI HCV (03/20/2016 4:19 PM MIXER AND BLENDER) HEPATITIS C ANTIBODY Non-Reacti ve Non-Reacti ve 03/20/2016 10:01 PM M[employer]ER AND BLENDER [facility] Blood BLOOD SPECIMEN / Unknown Venipuncture / Unknown 03/20/2016 4:19 PM MIXER AND BLENDER 03/20/2016 4:19 PM MIXER AND BLENDER Narrative [facility] - 03/20/2016 10:01 PM MIXER AND BLENDER Antibodies to HCV not detected; does not exclude the possibility of exposure to HCV. us Kody Atkinson MD SEND OUTS Final Result [facility] [address] [place] [address], * ANTI HIV 1/2 (02/09/2014 11:38 AM CDT) HIV-1/HIV-2 ANTIBODY Non-Reacti ve Non-Reacti ve 02/09/2014 6:27 PM CDT [facility] Blood specimen (specimen) BLOOD SPECIMEN / Unknown Venipuncture / Unknown 02/09/2014 11:38 AM CDT 02/09/2014 11:38 AM CDT Narrative [facility] - 02/09/2014 6:27 PM CDT HIV-1 p24 and HIV-1/HIV-2 Ab not detected us Sampson Soto MD SEND OUTS Final Resul t [facility] [address] [place] [address], from Last 3 Months or Most Recently Relevant to Health Maintenance Insurance [employer] [place] [employer] Care Teams Crucible Furnace Tender Relationship Specialty Start Date End Date Ruth Diaz MD [address] [place] [address] PCP - General Family Practice 11/14/24 Frances Farfan MD [address] [place] [address] Obstetrics and Gynecology 08/04/13
[2025-01-24 07:13] VITALS: BP 147/85; PULSE 69; RESP 18; TEMP 36.2; O2SAT 97; BMI 47554133.7
--- NOTE | 2025-01-24 07:32 | CRLHL7_ITS ---
For Patients: As a result of the Century Cures Act, medical imaging exams and procedure reports are released immediately into your electronic medical record. You may view this report before your referring provider. If you have questions, please contact your health care provider. INDICATION: Epigastric pain TECHNIQUE: CT abdomen and pelvis acquired with 126 cc Isovue 370 IV contrast. COMPARISON: CT abdomen pelvis without contrast January 13, 2024.. FINDINGS: Lower chest: Unremarkable. Liver: Unremarkable Gallbladder and bile ducts: Cholecystectomy. Pancreas: Subcentimeter hypodense lesion seen in the body of the pancreas on image 57 of series 2. Spleen: Unremarkable Adrenal glands: Unremarkable Kidneys: Subcentimeter hypodense lesions, too small to characterize. GI tract: Few scattered sigmoid colonic diverticuli. No evidence of diverticulitis. Normal appendix. Vasculature: Abdominal aorta is normal in caliber. Lymph nodes: No lymphadenopathy. Peritoneum/Abdominal Wall: Unremarkable Pelvis: Unremarkable. Bones: No acute findings. IMPRESSION: No acute abdominal or pelvic pathology. Subcentimeter hypodense lesion in the body of the pancreas. Further evaluation can be obtained with MRI abdomen pancreas protocol in a nonemergent outpatient setting. Few scattered sigmoid colonic diverticuli. Please note that all CT scans at this facility use dose modulation, iterative reconstruction, and/or weight-based dosing when appropriate to reduce radiation dose to as low as reasonably achievable. Dictated by Christiano Le MD @ 01/24/2025 8:47:38 AM (Electronically Signed)
--- NOTE | 2025-01-24 07:39 | ED.GENADULT ---
HPI - General Adult General Chief complaint: Abdominal Pain <Elli Neff MD - Last Filed: 01/25/25 23:56> Stated complaint: Abdominal pain <Elli Neff MD - Last Filed: 01/25/25 23:56> Time Seen by Provider: 01/24/25 07:20 <Elli Neff MD - Last Filed: 01/25/25 23:56> Source: patient <Elli Neff MD - Last Filed: 01/25/25 23:56> Mode of arrival: ambulatory <Elli Neff MD - Last Filed: 01/25/25 23:56> Limitations: no limitations <Elli Neff MD - Last Filed: 01/25/25 23:56> History of Present Illness HPI narrative: 54-year-old female presents the emergency department for evaluation of epigastric pain that started about an hour prior to arrival. No trauma or injury. Does have a history of gastritis many years ago, diagnosed by endoscopy, has continued on famotidine since. Denies any black tarry stools. No recent fevers. Is status post cholecystectomy. No prior small-bowel obstruction. Does not drink alcohol. Does take NSAIDs regularly for the osteoarthritis in her legs. Uses cholestyramine to help with diarrhea following her cholecystectomy. Denies any dysuria. No history of kidney stones. Pain radiates to the mid back. Achy, comes in waves. 8/10 at max. Denies prior history of similar symptoms. Only prior GI surgery has been a cholecystectomy, no others. Has been eating and drinking normally up until this point for the past few days. ROS is notable for the GI symptoms only, otherwise denies times 12 systems. Reports her only long-term health problems are the a GERD for which she takes the famotidine. Only other medication is Questran besides the famotidine. No allergies. Nonsmoker. No alcohol. <Elli Neff MD - Last Filed: 01/25/25 23:56> Related Data Home medications: Home Medications ?Medication ?Instructions ?Recorded ?Confirmed omega-3 fatty acids 1,000 mg 1,000 mg PO QDAY 07/20/23 01/24/25 capsule albuterol sulfate 90 mcg/actuation inhalation 01/24/25 aerosol inhaler (Ventolin HFA) propranolol 10 mg tablet 10 mg PO 3XD 01/24/25 01/24/25 topiramate 25 mg tablet 25 mg PO DAILY 01/24/25 01/24/25 Previous Rx's ?Medication ?Instructions ?Recorded sumatriptan succinate 100 mg tablet See Rx Instructions PO .COMPLEX 05/12/24 #10 tabs cholestyramine (with sugar) 4 gram 4 ea PO QDAY #120 ea 07/12/24 powder for susp in a packet famotidine 20 mg tablet 20 mg PO BID #180 tabs 07/12/24 sucralfate 1 gram tablet 1 g PO QID 2 weeks #56 tabs 01/24/25 <Elli Neff MD - Last Filed: 01/25/25 23:56> Allergies/adverse reactions: Allergies Allergy/AdvReac Type Severity Reaction Status Date / Time No Known Allergies Allergy Verified 01/24/25 08:18 <Elli Neff MD - Last Filed: 01/25/25 23:56> [facility] Medical History: Medical History Adenomyosis ?N80.03 - Adenomyosis of the uterus (ICD-10) Long QT interval ?R94.31 - Abnormal electrocardiogram [ECG] [EKG] (ICD-10) Gestational diabetes ?O24.419 - Gestational diabetes mellitus in , unspecified control (ICD-10) <Elli Neff MD - Last Filed: 01/25/25 23:56> Surgical History: Surgical History Status post arthroscopy of left knee (11/03/19) ?Z98.890 - Other specified postprocedural states (ICD-10) History of tonsillectomy (2002) ?Z90.89 - Acquired absence of other organs (ICD-10) History of laparoscopic cholecystectomy (2014) ?Z90.49 - Acquired absence of other specified parts of digestive tract (ICD-10) History of dilation and curettage (2000) ?Z98.890 - Other specified postprocedural states (ICD-10) History of colposcopy with cervical biopsy (1992) ?Z98.890 - Other specified postprocedural states (ICD-10) History of section ?Z98.891 - History of uterine scar from previous surgery (ICD-10) <Elli Neff MD - Last Filed: 01/25/25 23:56> Family History: Family History Mother Coronary artery disease Breast cancer Uterine cancer Family/Other Depression Daughter Fibromyalgia Father Prostate cancer <Elli Neff MD - Last Filed: 01/25/25 23:56> Social History: 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 Exercises 5 t 6 times per week- water at [employer], has started weights also 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, home health aide, 2 kids Rarely consumes alcohol What is your current living situation?: I presently have a place to live Problems where you live: no known problems In the past 12 months, utilities in danger of being shut off: no In past 12 months, lack of transportation kept you from medical appts, meetings, work, or getting things needed for daily living: no In the past 12 mos, have been you worried that your food would run out before you had money to buy more?: never true In the past 12 mos, the food you bought just didn't last and you didn't have money to buy more?: never true Smoking Status: Former smoker Do you use any of these nicotine containing products: None How often do you have a drink containing alcohol: 2-4 times a month AUDIT-C Alcohol total score: 2 Non-prescribed substance use: denies use How often does anyone, including family, friends and others, physically hurt you: never How often does anyone, including family, friends and others, insult or talk down to you: never How often does anyone, including family, friends and others, threaten you with harm: never How often does anyone, including family, friends and others, scream or curse at you: never service: No <Elli Neff MD - Last Filed: 01/25/25 23:56> Exam Const: Vital Signs, click to edit/add: Vital Signs - 24 hr 01/24/25 07:13 01/24/25 08:25 01/24/25 08:30 Temperature 97.2 F L Pulse Rate 81 77 Pulse Rate [Right Pulse Oximeter] 69 Respiratory Rate 18 16 Blood Pressure [Ri ght Forearm] 147/85 H Pulse Oximetry 97 96 94 Oxygen Delivery Me thod Room Air 01/24/25 08:45 01/24/25 09:00 Temperature Pulse Rate 80 72 Pulse Rate [Right Pulse Oximeter] Respiratory Rate Blood Pressure [Ri ght Forearm] Pulse Oximetry 95 92 Oxygen Delivery Me thod <Elli Neff MD - Last Filed: 01/25/25 23:56> Vital Signs, click to edit/add: Vital Signs - 24 hr 01/24/25 07:13 01/24/25 08:25 01/24/25 08:30 Temperature 97.2 F L Pulse Rate 81 77 Pulse Rate [Right Pulse Oximeter] 69 Respiratory Rate 18 16 Blood Pressure [Ri ght Forearm] 147/85 H Pulse Oximetry 97 96 94 Oxygen Delivery Me thod Room Air 01/24/25 08:45 01/24/25 09:00 Temperature Pulse Rate 80 72 Pulse Rate [Right Pulse Oximeter] Respiratory Rate Blood Pressure [Ri ght Forearm] Pulse Oximetry 95 92 Oxygen Delivery Me thod <Alva Solis MD - Last Filed: 01/24/25 09:21> Documenting provider has reviewed patient's vital signs: yes <Elli Neff MD - Last Filed: 01/25/25 23:56> Common normals: no apparent distress and alert <Elli Neff MD - Last Filed: 01/25/25 23:56> General appearance: cooperative and well kempt <Elli Neff MD - Last Filed: 01/25/25 23:56> Other: Appears well nourished, well hydrated, nontoxic. <Elli Neff MD - Last Filed: 01/25/25 23:56> HENMT: Common normals: normocephalic, moist oral mucous membranes and oropharynx normal <Elli Neff MD - Last Filed: 01/25/25 23:56> Head and scalp: normocephalic <MD Rocío Kemp Last Filed: 01/25/25 23:56> Face and sinus: normal facial exam <MD Rocío Kemp Last Filed: 01/25/25 23:56> Mouth: oral and palatal mucosa normal <MD Rocío Kemp Last Filed: 01/25/25 23:56> Eye: Common normals: conjunctivae normal <MD Rocío Kemp Last Filed: 01/25/25 23:56> General eye: normal appearance of both eyes <MD Rocío Kemp Last Filed: 01/25/25 23:56> Conjunctiva: conjunctiva(e) normal <MD Rocío Kemp Last Filed: 01/25/25 23:56> Neck & C-Spine: Common normals: full ROM and no lymphadenopathy <MD Rocío Kemp Last Filed: 01/25/25 23:56> General: normal visual inspection <MD Rocío Kemp Last Filed: 01/25/25 23:56> Resp: Common normals: normal respiratory effort, no use of accessory muscles and clear to auscultation bilaterally <MD Rocío Kemp Last Filed: 01/25/25 23:56> Effort & inspection: able to speak in complete sentences <MD Rocío Kemp Last Filed: 01/25/25 23:56> Auscultation: clear to auscultation bilaterally <MD Rocío Kemp Last Filed: 01/25/25 23:56> Cardio: Common normals: regular rate, regular rhythm, S1 normal heart sound, S2 normal heart sound and no murmurs <MD Rocío Kemp Last Filed: 01/25/25 23:56> Rate: regular rate <MD Rocío Kemp Last Filed: 01/25/25 23:56> Rhythm: regular rhythm <MD Rocío Kemp Last Filed: 01/25/25 23:56> Heart sounds: S1 normal and S2 normal <Elli Neff MD - Last Filed: 01/25/25 23:56> GI: Common normals: Normal to inspection, nondistended, normoactive bowel sounds present, soft to palpation, no hepatosplenomegaly and no masses <Elli Neff MD - Last Filed: 01/25/25 23:56> Palpation: soft and no hepatosplenomegaly <Elli Neff MD - Last Filed: 01/25/25 23:56> Other: Tender to palpation of the epigastrium with mild guarding. No rebound tenderness. No obvious mass. <MD Rocío Kemp Last Filed: 01/25/25 23:56> Back & Pelvis: Common normals: thoracic and lumbar spine normal to inspection <Elli Neff MD - Last Filed: 01/25/25 23:56> Extremity: Common normals: normal to inspection, normal capillary refill and no pedal edema <Elli Neff MD - Last Filed: 01/25/25 23:56> Neuro: Common normals: moves all extremities <Elli Neff MD - Last Filed: 01/25/25 23:56> Sensorium/orientation: alert <MD Rocío Kemp Last Filed: 01/25/25 23:56> Speech: speech normal <MD Rocío Kemp Last Filed: 01/25/25 23:56> Motor exam: strength 5/5 throughout <MD Rocío Kemp Last Filed: 01/25/25 23:56> Psych: Appearance: well kempt <MD Rocío Kemp Last Filed: 01/25/25 23:56> Attitude: engaged <MD Rocío Kemp Last Filed: 01/25/25 23:56> Activity/motor behavior: appropriate eye contact <MD Rocío Kemp Last Filed: 01/25/25 23:56> Mood and affect: euthymic mood <MD Rocío Kemp Last Filed: 01/25/25 23:56> Insight: insight good <Elli Neff MD - Last Filed: 01/25/25 23:56> Judgement: judgment good <Elli Neff MD - Last Filed: 01/25/25 23:56> Skin: Common normals: no rashes or lesions noted <Elli Neff MD - Last Filed: 01/25/25 23:56> General skin exam: no rashes or lesions noted <Elli Neff MD - Last Filed: 01/25/25 23:56> Course Course ED Course: 54-year-old female with epigastric pain, severe per patient, coming in sharp waves. Does take NSAIDs and has a history of gastritis, certainly could be a perforated ulcer. Concern also for pancreatitis, small-bowel obstruction, gastritis, gallstone though unlikely due to cholecystectomy. Could also be gas or colitis, amongst other differentials. Will place peripheral IV, give Protonix, Dilaudid and ondansetron. Typical GI labs. CT abdomen and pelvis. Urinalysis. Await findings. <Elli Neff MD - Last Filed: 01/25/25 23:56> Reevaluation(s) Time of Reevaluation #1: 09:14 <Alva Solis MD - Last Filed: 01/24/25 09:21> Reevaluation #1: Patient is still having some intermittent symptoms, improved overall though. She states she cannot take any of the proton pump inhibitors, she states she has tried all of them, they make her wheezy and short of breath. She does take at least 6-800 mg of ibuprofen every day, she took some today and symptoms started after that. This does make me suspicious for gastric etiologies and possible early ulcer. Will add sucralfate to her famotidine. Discussed with her I think she needs an EGD as next part of evaluation. She would like me to order it through our facility, this will help facilitate getting this done quicker. I did offer her to go back to her primary to order it. She does need to follow up with her primary, discussed the mildly elevated liver enzymes which likely reflect fatty liver, small pancreatic lesion but normal lipase. She will need a pancreatic protocol MRI done outpatient to further evaluate. I do not think that this is the causative etiology of her symptoms. <Alva Solis MD - Last Filed: 01/24/25 09:21> Vital Signs Vital signs: Initial Vital Signs Temperature 97.2 F L 01/24/25 07:13 Temperature Source Temporal Artery Scan 01/24/25 07:13 Pulse Rate 69 01/24/25 07:13 Pulse Rhythm Regular 01/24/25 07:13 Pulse Strength 3+ Normal 01/24/25 07:13 Respiratory Rate 18 01/24/25 07:13 Blood Pressure 147/85 H 01/24/25 07:13 Blood Pressure Mean 105 01/24/25 07:13 Blood Pressure Position Sitting 01/24/25 07:13 Pulse Oximetry 97 01/24/25 07:13 Oxygen Delivery Method Room Air 01/24/25 07:13 Vital Signs Temperature 97.2 F L 01/24/25 07:13 Pulse Rate 69 01/24/25 07:13 Respiratory Rate 18 01/24/25 07:13 Blood Pressure 147/85 H 01/24/25 07:13 Pulse Oximetry 97 01/24/25 07:13 Oxygen Delivery Method Room Air 01/24/25 07:13 Temperature 97.2 F L 01/24/25 07:13 Pulse Rate 72 01/24/25 09:00 Respiratory Rate 16 01/24/25 08:25 Blood Pressure 147/85 H 01/24/25 07:13 Pulse Oximetry 92 01/24/25 09:00 Oxygen Delivery Method Room Air 01/24/25 07:13 <Elli Neff MD - Last Filed: 01/25/25 23:56> Initial Vital Signs Temperature 97.2 F L 01/24/25 07:13 Temperature Source Temporal Artery Scan 01/24/25 07:13 Pulse Rate 69 01/24/25 07:13 Pulse Rhythm Regular 01/24/25 07:13 Pulse Strength 3+ Normal 01/24/25 07:13 Respiratory Rate 18 01/24/25 07:13 Blood Pressure 147/85 H 01/24/25 07:13 Blood Pressure Mean 105 01/24/25 07:13 Blood Pressure Position Sitting 01/24/25 07:13 Pulse Oximetry 97 01/24/25 07:13 Oxygen Delivery Method Room Air 01/24/25 07:13 Vital Signs Temperature 97.2 F L 01/24/25 07:13 Pulse Rate 69 01/24/25 07:13 Respiratory Rate 18 01/24/25 07:13 Blood Pressure 147/85 H 01/24/25 07:13 Pulse Oximetry 97 01/24/25 07:13 Oxygen Delivery Method Room Air 01/24/25 07:13 Temperature 97.2 F L 01/24/25 07:13 Pulse Rate 72 01/24/25 09:00 Respiratory Rate 16 01/24/25 08:25 Blood Pressure 147/85 H 01/24/25 07:13 Pulse Oximetry 92 01/24/25 09:00 Oxygen Delivery Method Room Air 01/24/25 07:13 <Alva Solis MD - Last Filed: 01/24/25 09:21> Medications Administered Medications: Discontinued Medications Generic Name Dose Route Start Last Admin Trade Name Freq PRN Reason Stop Dose Admin Hydromorphone HCl 0.5 mg 01/24/25 07:32 01/24/25 07:54 Hydromorphone 0.5 Mg/0.5 Ml Inj IVP 01/24/25 07:33 0.5 mg ONCE ONE Administration Ondansetron HCl 4 mg 01/24/25 07:32 01/24/25 07:55 Ondansetron 2 Mg/Ml Inj IVP 01/24/25 07:33 4 mg ONCE ONE Administration Pantoprazole Sodium 40 mg 01/24/25 07:32 01/24/25 07:55 Pantoprazole Sodium 40 Mg Inj IVP 01/24/25 07:33 40 mg ONCE ONE Administration <Elli Neff MD - Last Filed: 01/25/25 23:56> Discontinued Medications Generic Name Dose Route Start Last Admin Trade Name Freq PRN Reason Stop Dose Admin Hydromorphone HCl 0.5 mg 01/24/25 07:32 01/24/25 07:54 Hydromorphone 0.5 Mg/0.5 Ml Inj IVP 01/24/25 07:33 0.5 mg ONCE ONE Administration Ondansetron HCl 4 mg 01/24/25 07:32 01/24/25 07:55 Ondansetron 2 Mg/Ml Inj IVP 01/24/25 07:33 4 mg ONCE ONE Administration Pantoprazole Sodium 40 mg 01/24/25 07:32 01/24/25 07:55 Pantoprazole Sodium 40 Mg Inj IVP 01/24/25 07:33 40 mg ONCE ONE Administration <Alva Solis MD - Last Filed: 01/24/25 09:21> Medical Decision Making Lab Data Lab results reviewed: Yes I reviewed the patient's lab results <Alva Solis MD - Last Filed: 01/24/25 09:21> Lab results narrative: No significant leukocytosis, no anemia. Platelets normal. Electrolytes all reassuring. The for enzymes normal. CRP normal. Lipase normal. Urinalysis with some mild changes but not suggestive of infection. <Elli Neff MD - Last Filed: 01/25/25 23:56> Labs: Lab Results 01/24/25 01/24/25 01/24/25 Range/Units 07:32 07:56 08:15 WBC 6.17 (4.50-11.00) K/uL RBC 4.94 (4.00-5.20) m/uL Hgb 13.6 (12.0-16.0) gm/dL Hct 42.7 (33.0-51.0) % MCV 86 (80-100) fL MCH 28 (26-34) pg MCHC 32 (32-36) gm/dL RDW Coeff of Jeannette 12.9 (11.5-15.5) % Plt Count 197 (140-440) K/uL Neut % (Auto) 62.2 (42.0-72.0) % Lymph % (Auto) 26.6 (20-44) % [place] % (Auto) 5.5 (0.0-11.0) % Eos % (Auto) 4.9 (0.0-7.0) % Baso % (Auto) 0.6 (0.0-3.0) % Neut # (Auto) 3.84 (1.7-7.0) K/uL Lymph # (Auto) 1.64 (0.90-2.90) K/uL [place] # (Auto) 0.30 (0.00-0.90) K/UL Eos # (Auto) 0.30 (0.00-0.50) K/uL Baso # (Auto) 0.04 (0.00-0.30) K/uL Abs Immat Gran (auto) 0.01 (0.00-0.30) K/uL Imm/Tot Granulo (auto) 0.2 % Sodium 136 (135-149) mmol/L Potassium 3.5 L (3.6-5.1) mmol/L Chloride 104 (96-114) mmol/L Carbon Dioxide 28 (20-32) mmol/L Anion Gap 4 L (7-15) mEq/L BUN 14 (7-30) mg/dL Creatinine 0.7 (0.5-1.5) mg/dL Estimated Creat Clear 71.82 Estimated GFR 102 ml/min Glucose 115 (60-115) mg/dL Calcium 8.6 (8.4-10.6) mg/dL Total Bilirubin 0.6 (0.1-1.5) mg/dL AST 72 H (12-35) U/L ALT 39 H (4-35) U/L Alkaline Phosphatase 131 (40-150) U/L C-Reactive Protein < 0.5 L (0.5-1.0) mg/dL Total Protein 6.5 (6.0-8.3) g/dL Albumin 3.7 (3.3-5.0) g/dL Lipase 188 (23-300) U/L Urine Color Dark yellow (Yellow) Urine Appearance Clear (Clear) Urine pH 5.5 (5.0-8.5) Ur Specific [place] 1.015 (1.000-1.030) Urine Protein Negative (Negative) Urine Glucose (UA) Negative (Negative) Urine Ketones Negative (Negative) Urine Blood Trace-intact A (Negative) Urine Nitrite Negative (Negative) Urine Bilirubin Negative (Negative) Urine Urobilinogen 0.2 (0.2-1.0) Ur Leukocyte Esterase 1+ A (Negative) Urine RBC 2-5 A (0-2) Urine WBC 10-25 A (0-5) Ur Squamous Epith Cells Moderate A (None-Few) Urine Bacteria Few A (None) POC Troponin I 0.00 L (0.01-0.04) ng/ml <Elli Neff MD - Last Filed: 01/25/25 23:56> Lab Results 01/24/25 01/24/25 01/24/25 Range/Units 07:32 07:56 08:15 WBC 6.17 (4.50-11.00) K/uL RBC 4.94 (4.00-5.20) m/uL Hgb 13.6 (12.0-16.0) gm/dL Hct 42.7 (33.0-51.0) % MCV 86 (80-100) fL MCH 28 (26-34) pg MCHC 32 (32-36) gm/dL RDW Coeff of Jeannette 12.9 (11.5-15.5) % Plt Count 197 (140-440) K/uL Neut % (Auto) 62.2 (42.0-72.0) % Lymph % (Auto) 26.6 (20-44) % [place] % (Auto) 5.5 (0.0-11.0) % Eos % (Auto) 4.9 (0.0-7.0) % Baso % (Auto) 0.6 (0.0-3.0) % Neut # (Auto) 3.84 (1.7-7.0) K/uL Lymph # (Auto) 1.64 (0.90-2.90) K/uL [place] # (Auto) 0.30 (0.00-0.90) K/UL Eos # (Auto) 0.30 (0.00-0.50) K/uL Baso # (Auto) 0.04 (0.00-0.30) K/uL Abs Immat Gran (auto) 0.01 (0.00-0.30) K/uL Imm/Tot Granulo (auto) 0.2 % Sodium 136 (135-149) mmol/L Potassium 3.5 L (3.6-5.1) mmol/L Chloride 104 (96-114) mmol/L Carbon Dioxide 28 (20-32) mmol/L Anion Gap 4 L (7-15) mEq/L BUN 14 (7-30) mg/dL Creatinine 0.7 (0.5-1.5) mg/dL Estimated Creat Clear 71.82 Estimated GFR 102 ml/min Glucose 115 (60-115) mg/dL Calcium 8.6 (8.4-10.6) mg/dL Total Bilirubin 0.6 (0.1-1.5) mg/dL AST 72 H (12-35) U/L ALT 39 H (4-35) U/L Alkaline Phosphatase 131 (40-150) U/L C-Reactive Protein < 0.5 L (0.5-1.0) mg/dL Total Protein 6.5 (6.0-8.3) g/dL Albumin 3.7 (3.3-5.0) g/dL Lipase 188 (23-300) U/L Urine Color Dark yellow (Yellow) Urine Appearance Clear (Clear) Urine pH 5.5 (5.0-8.5) Ur Specific [place] 1.015 (1.000-1.030) Urine Protein Negative (Negative) Urine Glucose (UA) Negative (Negative) Urine Ketones Negative (Negative) Urine Blood Trace-intact A (Negative) Urine Nitrite Negative (Negative) Urine Bilirubin Negative (Negative) Urine Urobilinogen 0.2 (0.2-1.0) Ur Leukocyte Esterase 1+ A (Negative) Urine RBC 2-5 A (0-2) Urine WBC 10-25 A (0-5) Ur Squamous Epith Cells Moderate A (None-Few) Urine Bacteria Few A (None) POC Troponin I 0.00 L (0.01-0.04) ng/ml <Alva Solis MD - Last Filed: 01/24/25 09:21> Imaging Data CT scan - abdomen: Attestation: I have reviewed the pertinent imaging results. <Alva Solis MD - Last Filed: 01/24/25 09:21> Radiologist's impression: Patient: UMA GRAJEDA Facility:?[facility] Patient ID:?[id number] Site Patient ID:?[id number]. Site :?[id number] Study:?CT-Abdomen/Pelvis 126CC ISOVUE 370-01/24/2025 8:21:27 AM Ordering Physician:Steve Calloway Final Report: INDICATION: Epigastric pain TECHNIQUE: CT abdomen and pelvis acquired with 126 cc Isovue 370 IV contrast. COMPARISON: CT abdomen pelvis without contrast January 13, 2024.. FINDINGS: Lower chest: Unremarkable. Liver: Unremarkable Gallbladder and bile ducts: Cholecystectomy. Pancreas: Subcentimeter hypodense lesion seen in the body of the pancreas on image 57 of series 2. Spleen: Unremarkable Adrenal glands: Unremarkable Kidneys: Subcentimeter hypodense lesions, too small to characterize. GI tract: Few scattered sigmoid colonic diverticuli. No evidence of diverticulitis. Normal appendix. Vasculature: Abdominal aorta is normal in caliber. Lymph nodes: No lymphadenopathy. Peritoneum/Abdominal Wall: Unremarkable Pelvis: Unremarkable. Bones: No acute findings. IMPRESSION: No acute abdominal or pelvic pathology. Subcentimeter hypodense lesion in the body of the pancreas. Further evaluation can be obtained with MRI abdomen pancreas protocol in a nonemergent outpatient setting. Few scattered sigmoid colonic diverticuli. Please note that all CT scans at this facility use dose modulation, iterative reconstruction, and/or weight-based dosing when appropriate to reduce radiation dose to as low as reasonably achievable. Dictated by Christiano Le MD @ 01/24/2025 8:47:38 AM (Electronic Signature) <Alva Solis MD - Last Filed: 01/24/25 09:21> Discharge Plan Discharge Clinical Impression: Acute epigastric pain <Elli Neff MD - Last Filed: 01/25/25 23:56> Patient Disposition: Home, Self-Care <Elli Neff MD - Last Filed: 01/25/25 23:56> Condition: Stable <Elli Neff MD - Last Filed: 01/25/25 23:56> Instructions: GERD (Gastroesophageal Reflux Disease) (ED), Epigastric Pain (ED) <Elli Neff MD - Last Filed: 01/25/25 23:56> Additional Instructions: Avoid NSAIDs. Use the sucralfate to help coat the esophagus and stomach. Continue on with the famotidine. You will be contacted by our endoscopy center to get scheduled for an EGD. You will need to schedule follow-up with your primary care provider, bring CT report with that. Liver enzymes were mildly elevated likely represents fatty liver disease, continue to monitor with your primary care provider. On the CT, there was also a small pancreatic lesion but your lipase was normal. It is recommended to do an outpatient pancreatic protocol MRI for further evaluation of this. Your primary care provider should get this scheduled. In the meantime, if your pain is increasing, have further concerns, seek re-evaluation. <Elli Neff MD - Last Filed: 01/25/25 23:56> Activity Level: Activity as Tolerated <Elli Neff MD - Last Filed: 01/25/25 23:56> Activity as Tolerated <Alva Solis MD - Last Filed: 01/24/25 09:21> Prescriptions: New sucralfate 1 gram tablet 1 g PO QID 14 Days Qty: 56 0RF No Action omega-3 fatty acids 1,000 mg capsule 1,000 mg PO QDAY sumatriptan succinate 100 mg tablet See Rx Instructions PO .COMPLEX Qty: 10 0RF Rx Instructions: take 1 tab at onset of headache; if no relief, may repeat 1 tab after at least 2 hrs; max = 2 tabs/24 hrs PO topiramate 25 mg tablet 25 mg PO DAILY propranolol 10 mg tablet 10 mg PO 3XD albuterol sulfate [Ventolin HFA] 90 mcg/actuation HFA aerosol inhaler inhalation famotidine 20 mg tablet 20 mg PO BID Qty: 180 2RF cholestyramine (with sugar) 4 gram powder in packet 4 ea PO QDAY Qty: 120 11RF <Elli Neff MD - Last Filed: 01/25/25 23:56> Follow Up/Referrals: Ruth Diaz MD [Primary Care Provider, Obstetrics] <Elli Neff MD - Last Filed: 01/25/25 23:56> Stand Alone Forms: My[facility] Info Instructions <Elli Neff MD - Last Filed: 01/25/25 23:56>
[2025-01-24] MEDS: ONDANSETRON 2 MG/ML inj 4 MG IVP (07:55)
[2025-01-24] MEDS: PANTOPRAZOLE SODIUM 40 MG INJ IVP (07:55)
[2025-01-24 08:06] LABS: Hematocrit* 42.7 % (33.0-51.0); Hemoglobin* 13.6 gm/dL (12.0-16.0); Immature Granulocytes Abs Auto 0.01 K/uL (0.00-0.30); Immature Granulocytes Pct Auto 0.2 %; Lymphocytes Absolute Auto 1.64 K/uL (0.90-2.90); Mean Corpuscular HGB Conc 32 gm/dL (32-36); Mean Corpuscular Hemoglobin 28 pg (26-34); Mean Corpuscular Volume 86 fL (80-100); RDW Coefficient of Variation % 12.9 % (11.5-15.5); Red Blood Count* 4.94 m/uL (4.00-5.20); White Blood Count* 6.17 K/uL (4.50-11.00)
[2025-01-24 08:11] LABS: Slide Review Reflex No
[2025-01-24 08:20] LABS: Troponin, Point-of-Care* 0.00 ng/ml (0.01-0.04)
[2025-01-24 08:23] LABS: Albumin* 3.7 g/dL (3.3-5.0); Chloride* 104 mmol/L (96-114); Sodium* 136 mmol/L (135-149)
[2025-01-24 08:23] LABS: Appearance Urine Clear (Clear)
[2025-01-24 08:24] LABS: Potassium* 3.5 mmol/L (3.6-5.1)
[2025-01-24 08:25] VITALS: PULSE 81; RESP 16; O2SAT 96
[2025-01-24 08:26] LABS: Alanine Aminotransferase* 39 U/L (4-35); Alkaline Phosphatase* 131 U/L (40-150); Anion Gap 4 mEq/L (7-15); Aspartate Amino Transferase* 72 U/L (12-35); Bilirubin Total* 0.6 mg/dL (0.1-1.5); Blood Urea Nitrogen* 14 mg/dL (7-30); Carbon Dioxide* 28 mmol/L (20-32); Creatinine* 0.7 mg/dL (0.5-1.5); Est. Creatinine Clearance* 71.82; Estimated Glomerular Filt Rate 102 ml/min; Total Protein* 6.5 g/dL (6.0-8.3)
[2025-01-24 08:27] LABS: Calcium* 8.6 mg/dL (8.4-10.6); Glucose* 115 mg/dL (60-115)
[2025-01-24 08:30] VITALS: PULSE 77; O2SAT 94
[2025-01-24 08:45] VITALS: PULSE 80; O2SAT 95
[2025-01-24 09:00] VITALS: PULSE 72; O2SAT 92
== END 2025-01-24 09:37 | disposition home or self-care (01) ==
PROVIDERS: Emergency Provider Family Medicine; PCP Family Medicine
DX: R10.13 Epigastric pain (principal); K21.9 Gastro-esophageal reflux disease without esophagitis
CPT/HCPCS: 36415; 74177; 80053; 81001; 81003; 83690; 84484; 85025; 86140; 87086; 94761; 96374; 96375; 99284; 99285; J1171; J2405; J2470; Q9967

== ENCOUNTER 2025-01-30 09:53 | Outpatient (CLI) | payer MEDICAID, SELFPAY ==
--- NOTE | 2025-01-30 11:04 | P.ANES_ITS ---
Anesthesia Charges Start Date/Time Anesthesia Start Date: 01/30/25 Anesthesia Start Time: 10:37 Stop Date/Time Anesthesia Stop Date: 01/30/25 Anesthesia Stop Time: 11:02 Coding CPT Codes CPT Codes: ANES UPR GI NDSC PX NOS - 97862 ([id number]) QK - INTERNET SALESPERSON 2-4 CNCRNT ANES PROC, QX - SOLUTIONS CONSULTANT SVC W/ MD MED DIRECTION, P3 - PATIENT W/SEVERE SYS DISEASE
--- NOTE | 2025-01-30 11:04 | P.ANES_ITS ---
Anesthesia Charges Start Date/Time Anesthesia Start Date: 01/30/25 Anesthesia Start Time: 10:37 Stop Date/Time Anesthesia Stop Date: 01/30/25 Anesthesia Stop Time: 11:02 Coding CPT Codes CPT Codes: ANES UPR GI NDSC PX NOS - 46483 ([id number]) P3 - PATIENT W/SEVERE SYS DISEASE, QX - MANAGER IT TRAINING SVC W/ MD MED DIRECTION, QK - CONE TENDER 2-4 CNCRNT ANES PROC
--- NOTE | 2025-01-30 11:04 | W.ANESCHARGE ---
Anesthesia Charges Start Date/Time Anesthesia Start Date: 01/30/25 Anesthesia Start Time: 10:37 Stop Date/Time Anesthesia Stop Date: 01/30/25 Anesthesia Stop Time: 11:02 Coding CPT Codes CPT Codes: ANES UPR GI NDSC PX NOS - 09211 ([id number]) P3 - PATIENT W/SEVERE SYS DISEASE, QX - JALOUSIE INSTALLER SVC W/ MD MED DIRECTION, QK - GROUP THERAPY COUNSELOR 2-4 CNCRNT ANES PROC
--- NOTE | 2025-01-30 11:04 | W.ANESCHARGE ---
Anesthesia Charges Start Date/Time Anesthesia Start Date: 01/30/25 Anesthesia Start Time: 10:37 Stop Date/Time Anesthesia Stop Date: 01/30/25 Anesthesia Stop Time: 11:02 Coding CPT Codes CPT Codes: ANES UPR GI NDSC PX NOS - 87687 ([id number]) QK - UNIT CONTROL CLERK 2-4 CNCRNT ANES PROC, QX - HUMAN SERVICE WORKER SVC W/ MD MED DIRECTION, P3 - PATIENT W/SEVERE SYS DISEASE
[2025-01-30] MEDS: ALBUTEROL SULFATE 2.5 MG/3 ML VIAL.NEB NEB (11:45)
== END 2025-01-30 09:54 | disposition home or self-care (01) ==
LOC: OP CLINIC 09:55
PROVIDERS: PCP Family Medicine; Visit Provider Family Medicine
DX: R10.13 Epigastric pain (principal)
CPT/HCPCS: 00731; 43239; 94640; J2704; J3010